=== PATIENT | female | born 1975 ===

== ENCOUNTER 2016-07-03 22:13 | Emergency (ER) | payer OTHER ==
[2016-07-03 23:24] LABS: BASO # 0.1 K/uL (0.0-0.2); BASO % 0.7 % (0.0-2.0); EOS # 0.1 K/uL (0.0-0.7); EOS % 1.8 % (0.0-4.0); HEMATOCRIT 35.3 % (34.0-47.0); LYMPH # 2.8 K/uL (1.0-4.3); LYMPH % 37.6 % (20.0-40.0); MEAN CORPUSCULAR HEMOGLOBIN 30.1 pg (27.0-31.0); MEAN CORPUSCULAR HGB CONC 34.2 g/dL (33.0-37.0); MEAN PLATELET VOLUME 8.9 fL (7.2-11.7); MONO # 0.5 K/uL (0.0-0.8); MONO % 6.9 % (0.0-10.0); RED CELL DISTRIBUTION WIDTH 13.5 % (11.5-14.5); WHITE BLOOD COUNT 7.4 K/uL (4.8-10.8)
[2016-07-03 23:32] LABS: CHLORIDE 103 mmol/L (98-107); SODIUM 140 mmol/L (132-148)
[2016-07-03 23:33] LABS: POTASSIUM 4.1 mmol/L (3.6-5.2)
[2016-07-03 23:35] LABS: ALB/GLOB RATIO 1.4 (1.0-2.1); ALKALINE PHOSPHATASE 43 U/L (38-126); ALT/SGPT 20 U/L (9-52); AST/SGOT 26 U/L (14-36); BILIRUBIN,TOTAL 0.2 mg/dL (0.2-1.3); BLOOD UREA NITROGEN 8 mg/dL (7-17); CARBON DIOXIDE 21 mmol/L (22-30); GFR AFRICAN-AMERICAN > 60; GLUCOSE,RANDOM 81 mg/dL (65-105); TOTAL PROTEIN 7.5 g/dL (6.3-8.3)
[2016-07-03 23:36] LABS: CALCIUM 9.2 mg/dl (8.6-10.4)
--- NOTE | 2016-07-03 23:43 | C.PDOC ---
History Of Present Illness 40 y/o female, , who is 10 weeks with care, ultrasound 1 week ago showing IUP with heart rate but small for dates, reports mild cramping pain and vaginal bleeding onset last night. Patient states symptoms continued intermittently today. Denies any other medical problems. Denies fever, chills, nausea, vomiting, or other associated symptoms. Time Seen by Provider: 07/03/16 22:47 Chief Complaint (Nursing): Female Genitourinary History Per: Patient History/Exam Limitations: no limitations Onset/Duration Of Symptoms: Days Current Symptoms Are (Timing): Better Severity: Mild Quality Of Discomfort: Cramping, "Pain" Associated Symptoms: denies: Fever, Nausea, Vomiting, Diarrhea, Urinary Symptoms Recent travel outside of the [place]: No Abnormal Vaginal Bleeding: Yes : 3 Para: 2 Past Medical History Reviewed: Historical Data, Nursing Documentation, Vital Signs Vital Signs: Last Vital Signs Temp 98 F 07/04/16 01:00 Pulse 89 07/04/16 01:00 Resp 20 07/04/16 01:00 BP 119/70 07/04/16 01:00 Pulse Ox 100 07/04/16 01:40 - Medical History PMH: No Chronic Diseases Surgical History: No Surg Hx Family History: States: Unknown Family Hx - Social History Hx Tobacco Use: No Hx Alcohol Use: No Hx Substance Use: No Review Of Systems Except As Marked, All Systems Reviewed And Found Negative. Constitutional: Negative for: Fever, Chills Respiratory: Negative for: Cough Gastrointestinal: Positive for: Abdominal Pain. Negative for: Nausea, Vomiting Genitourinary: Positive for: Vaginal Bleeding. Negative for: Dysuria Skin: Negative for: Rash Neurological: Negative for: Headache Physical Exam - Physical Exam Appears: Non-toxic, No Acute Distress Skin: Normal Color, Warm, Dry Chest: Symmetrical Cardiovascular: Rhythm Regular Respiratory: No Rales, No Rhonchi, No Wheezing Gastrointestinal/Abdominal: Soft, No Tenderness, No Guarding, No Rebound Neurological/Psych: Oriented x3, Normal Speech, Normal Cognition ED Course And Treatment - Laboratory Results Result Diagrams: 07/03/16 23:20 07/03/16 23:20 O2 Sat by Pulse Oximetry: 100 (RA) Pulse Ox Interpretation: Normal - CT Scan/US US Other Rad Studies (CT/US): Read By Radiologist, Radiology Report Reviewed CT/US Interpretation: IMPRESSION: Gestational sac with pole corresponding to 6 weeks 2 days, no heart tones detected. Differential diagnosis, early , versus demise. Consider serial hCG follow-up and repeat ultrasound in one or 2 weeks for more definitive. assessment. Progress Note: Labs, ultrasound ordered and reviewed. Patient advised to follow up with clinic in 2-4 days for further evaluation. Medical Decision Making Medical Decision Making: Results discussed with pt and SO: quant 20K, should see 10wk fetus with heart beat, US us small for dates and no FH Pt likely at the start of her miscarrage Plan clinic f/u return heavy bleeding or pain Disposition Counseled Patient/Family Regarding: Studies Performed, Diagnosis, Need For Followup - Disposition Disposition: HOME/ ROUTINE Disposition Time: 00:49 Condition: GOOD Additional Instructions: Follow up with your clinic in 2 - 4 days Return to the ED for any new or worsening symptoms or any heavy bleeding Instructions: Threatened Miscarriage (ED) - Clinical Impression Clinical Impression: Miscarriage - Scribe Statement The provider has reviewed the documentation as recorded by the Margaret Sapp Provider Scribe Attestation: All medical record entries made by the Rowdyibkirill were at my direction and personally dictated by me. I have reviewed the chart and agree that the record accurately reflects my personal performance of the history, physical exam, medical decision making, and the department course for this patient. I have also personally directed, reviewed, and agree with the discharge instructions and disposition.
[2016-07-04 01:06] VITALS: BP 119/70; PULSE 89; RESP 20; TEMP 98
[2016-07-04 01:40] VITALS: O2SAT 100
--- NOTE | 2016-07-04 08:53 | US ---
Pelvic ultrasound History: 10 weeks , bleeding. Comparison: None. Technique: Transabdominal and transvaginal ultrasonography evaluation of the pelvis obtained. Findings: The uterus is anteverted and measures approximately 8.8 x 5.7 x 7.2 centimeters. There is an irregular-appearing intrauterine gestational sac in the mid uterine segment. The mean sac diameter is approximately 2.18 centimeter which corresponds to gestational age of 6 weeks 5 days. There is a yolk sac. A pole is identified. The pole measures approximately 0.3 centimeter. This corresponds to gestational age of 5 weeks 6 days. No cardiac activity identified. In the lower uterine/upper cervical segment, there is heterogeneous density with multiple focus of low density. Small amount of fluid seen within the cervix. The cervix overall has a measurement approximately 3.2 centimeters. The right ovary measures 3.5 x 1.9 x 1.9 centimeters. Possible corpus luteum cyst measuring 2 x 1.2 x 1.4 centimeters seen within the right ovary. A punctate focus of calcification measuring approximately 2 millimeters noted in the right ovary. Doppler flow seen within the right ovary. The left ovary measures approximately 2.7 x 1.4 x 1.7 centimeter. Doppler flow seen within the left ovary. No significant amount of free fluid seen in the cul-de-sac. Impression: Irregular-appearing gestational sac seen in the mid uterine segment. pole measuring 0.3 centimeters noted. No cardiac activity identified. Heterogeneous and low-density focus seen within the lower uterine/upper cervical segment. Small amount fluid seen in the cervix which measures approximately 3.2 centimeters. These findings is suspicious for ongoing . However, very early cannot be entirely excluded. Close interval follow-up ultrasound should be obtained for confirmation of viability. Follow-up with beta HCG levels also recommended. Other findings as above. Please note that this report is in general agreement with the preliminary report provided by [facility].
== END 2016-07-04 01:01 | disposition home or self-care (01) ==
LOC: SUPCPDRO 22:13 → C.ER 22:13
DX: O03.9 Complete or unspecified spontaneous abortion without complication (principal)

== ENCOUNTER 2016-07-14 22:36 | Inpatient (IN) | payer OTHER ==
[2016-07-14 23:13] LABS: BASO # 0.1 K/uL (0.0-0.2); WHITE BLOOD COUNT 9.7 K/uL (4.8-10.8)
[2016-07-14 23:16] LABS: BASO % 0.5 % (0.0-2.0); EOS # 0.2 K/uL (0.0-0.7); EOS % 1.6 % (0.0-4.0); HEMATOCRIT 29.9 % (34.0-47.0); LYMPH % 31.2 % (20.0-40.0); MEAN CELL VOLUME 87.5 fL (81.0-99.0); MEAN CORPUSCULAR HEMOGLOBIN 31.2 pg (27.0-31.0); MEAN CORPUSCULAR HGB CONC 35.7 g/dL (33.0-37.0); MEAN PLATELET VOLUME 8.2 fL (7.2-11.7); MONO # 0.6 K/uL (0.0-0.8); MONO % 6.1 % (0.0-10.0); NRBC % 0.1 % (0.0-2.0); RED CELL DISTRIBUTION WIDTH 13.5 % (11.5-14.5)
[2016-07-14] MEDS ORDERED: Sodium Chloride 0.9% 1,000 ML IV ONE (23:23)
[2016-07-15] MEDS ORDERED: Sodium Chloride 0.9% 1,000 ML IV ONE (00:22)
--- NOTE | 2016-07-15 00:27 | C.PDOC ---
History Of Present Illness Patient is a 40 year old female who presents to the ER with a complaint vaginal bleeding and clots. Patient was seen on the and diagnosed with a threatened miscarriage and had a confirmed demise on the . [place] [address] [place] [address], vaginal spotting, and a closed cervix so she was discharged home. Patient states she now has suprapubic cramping and lightheadedness associated with heavy vaginal bleeding. Patient denies passing tissue, fever, or chills. Time Seen by Provider: 07/14/16 22:45 Chief Complaint (Nursing): Female Genitourinary History Per: Patient History/Exam Limitations: no limitations Onset/Duration Of Symptoms: Hrs Current Symptoms Are (Timing): Still Present Quality Of Discomfort: Other (No pain) Associated Symptoms: denies: Fever, Chills Alleviating Factors: None Recent travel outside of the [place]: No Abnormal Vaginal Bleeding: Yes Past Medical History Reviewed: Historical Data, Nursing Documentation, Vital Signs Vital Signs: Last Vital Signs Temp 97.3 F L 07/14/16 22:40 Pulse 80 07/14/16 22:40 Resp 13 07/14/16 22:40 BP 93/48 L 07/15/16 00:04 Pulse Ox 97 07/15/16 00:31 - Medical History PMH: No Chronic Diseases Surgical History: No Surg Hx Family History: States: Unknown Family Hx - Social History Hx Tobacco Use: No Hx Alcohol Use: No Hx Substance Use: No - Immunization History Hx Tetanus Toxoid Vaccination: No Hx Influenza Vaccination: No Hx Pneumococcal Vaccination: No Review Of Systems Constitutional: Negative for: Fever, Chills Gastrointestinal: Positive for: Other (Suprapubic cramping) Genitourinary: Positive for: Vaginal Bleeding, Other (Clots) Physical Exam - Physical Exam Appears: Non-toxic, Other (Low blood pressure) Skin: Warm, Dry, Pale Head: Atraumatic, Normacephalic Oral Mucosa: Moist Chest: Symmetrical, No Tenderness Cardiovascular: Rhythm Regular, No Murmur Respiratory: Normal Breath Sounds, No Rales, No Rhonchi, No Wheezing Gastrointestinal/Abdominal: Soft, Tenderness (suprapubic) Pelvic: Cervix Open (Clots in vaginal vault), Other (Tissue in os) Neurological/Psych: Oriented x3, Normal Speech, Normal Cognition ED Course And Treatment - Laboratory Results Result Diagrams: 07/14/16 23:05 Lab Interpretation: Abnormal Interpretation Of Abnormal: HGB decreased to 10.7 from 12.3 on the 18th. HCG now 4461. O2 Sat by Pulse Oximetry: 97 Pulse Ox Interpretation: Normal Reevaluation Time: 00:33 Reassessment Condition: Unchanged (Patient has a mildly decreased BP despite being given 1 liter of saline IV. An additional leter ordered.) - Physician Consult Information Time Consulting Physician Contacted: 00:33 Physician Contacted: China A Agustin Outcome Of Conversation: Patient to be admitted for spontaneous miscarriage with heavy vaginal bleeding. Medical Decision Making Medical Decision Making: Plan: * IV fluids * Transvaginal US Disposition - Disposition Disposition: HOSPITALIZED Disposition Time: 00:34 Condition: FAIR - POA Present On Arrival: None - Clinical Impression Clinical Impression: Miscarriage - Scribe Statement The provider has reviewed the documentation as recorded by the Scribe Reno Meza All medical record entries made by the Scribe were at my direction and personally dictated by me. I have reviewed the chart and agree that the record accurately reflects my personal performance of the history, physical exam, medical decision making, and the department course for this patient. I have also personally directed, reviewed, and agree with the discharge instructions and disposition.
[2016-07-15] MEDS ORDERED: metroNIDAZOLE IV 500 mg/100 ml 500 MG/100 ML BAG IVPB STA (01:25)
[2016-07-15] MEDS ORDERED: cefOXitin IV 2 gm in Dextrose 2 GM/50 ML BAG IVPB ONE (01:26)
--- NOTE | 2016-07-15 01:42 | CP.PCM.HP ---
History of Present Illness - History of Present Illness History of Present Illness: [place] [id number] Patient received in stretcher, bed #1; significant other present 40 yo , LMP 04/21/16,EGA 12 weeks, returns with heavier vaginal bleeding x 2 days and passage of clots 07/14/16; and lower abdominal pain, pain scale 8/ 10. Patient seen in E.D. 07/11/16 with c/o vaginal bleeding: os was closed; ultrasound findings c/w IUP at 5weeks 5 days with irregular sac, pole but no cardiac activity. Previous E.D. visit 07/04/16 at 6w - c/w missed . records reveals ultrasound 06/27/16 with 2 weeks discrepancy, AGA 7w 4d , by LMP should have been 9 weeks. Current pain scale 8/10. Patient denies loss of consciousness, dizziness, (+) headaches. Patient last 2000 hours - rice and beef. P Ob: x 2: 1996, 7 1/2 lb; 1999, 12 lb - both females; born in [facility]. No GDM; no complications P RESEARCH DEVELOPMENT DIRECTOR: 13 x monthly x 6. Denies STIs PMH: denies PSH: denies NKDA Meds: PNV - QD Soc Hx: denies tobacco, illicit drug or EtOH use. Lives with current significant /FOB and a female roommate; with FOB x 2 years. Fam Hx: Mother alive - breast cancer and GI issues. Father age 89 - possible DVT with massive embolus. No other fam h/o cancer Present on Admission - Present on Admission Any Indicators Present on Admission: No Review of Systems - Review of Systems Systems not reviewed;Unavailable: Acuity of Condition All systems: reviewed and no additional remarkable complaints except - Reproductive: Female Reproductive:Female: As Per HPI Past Patient History - Infectious Disease Hx of Infectious Diseases: None - Tetanus Immunizations Tetanus Immunization: Unknown - Past Social History Smoking Status: Never Smoked Alcohol: None Drugs: Denies Home Situation {Lives}: Friends - CARDIAC Hx Cardiac Disorders: No - PULMONARY Hx Respiratory Disorders: No - NEUROLOGICAL Hx Neurological Disorder: No - HEENT Hx HEENT Problems: No - RENAL Hx Chronic Kidney Disease: No - ENDOCRINE/METABOLIC Hx Endocrine Disorders: No - HEMATOLOGICAL/ONCOLOGICAL Hx Blood Disorders: No - INTEGUMENTARY Hx Dermatological Problems: No - MUSCULOSKELETAL/RHEUMATOLOGICAL Hx Musculoskeletal Disorders: No - GASTROINTESTINAL Hx Gastrointestinal Disorders: No - GENITOURINARY/GYNECOLOGICAL Hx Genitourinary Disorders: No LMP:: 04/21/2016 : 3 Para: 2 Termination of : 0 - PSYCHIATRIC Hx Psychophysiologic Disorder: No Hx Substance Use: No - SURGICAL HISTORY Hx Surgeries: No - ANESTHESIA Hx Anesthesia: No Meds Allergies/Adverse Reactions: Allergies Allergy/AdvReac Type Severity Reaction Status Date / Time No Known Allergies Allergy Verified 07/14/16 22:47 Physical Exam - Constitutional Appears: Well, No Acute Distress - Head Exam Head Exam: NORMAL INSPECTION - Eye Exam Eye Exam: Normal appearance - ENT Exam ENT Exam: Mucous Membranes Moist - Respiratory Exam Respiratory Exam: Clear to Auscultation Bilateral, NORMAL BREATHING PATTERN - Cardiovascular Exam Cardiovascular Exam: REGULAR RHYTHM - GI/Abdominal Exam GI & Abdominal Exam: Normal Bowel Sounds, Soft - Exam External exam: NORMAL EXTERNAL EXAM Additional comments: Cervical os 2cm dilated; tissue palpated at internal os. Anteverted uterus 10 weeks, soft, mobile, (+) uterine tenderness; no adnexal masses or tenderness - Extremities Exam Extremities exam: Positive for: full ROM, normal inspection - Back Exam Back exam: NORMAL INSPECTION - Neurological Exam Neurological exam: Alert, Normal Gait, Oriented x3 - Psychiatric Exam Psychiatric exam: Normal Affect, Normal Mood - Skin Skin Exam: Dry, Intact, Pallor, Warm Results - Vital Signs Recent Vital Signs: Last Vital Signs Temp 97.3 F L 07/14/16 22:40 Pulse 80 07/14/16 22:40 Resp 13 07/14/16 22:40 BP 93/48 L 07/15/16 00:04 Pulse Ox 97 07/15/16 00:34 - Labs Result Diagrams: 07/14/16 23:05 Assessment & Plan - Assessment and Plan (Free Text) Assessment: Laboratory results and ultrasound report reviewed by me personally: latter noted for no IUP; thickened endometrium, heterogeneous 1.8 cm; cystic structure within endometrium 0.6 x 0.6 cm - c/w retained products of conception 40 yo P2, 12 weeks, known missed , now with incomplete . Decreased H/H compared to prior evaluation 06/2616 noted. Patient is otherwise hemodynamically stable. Counseled for D&C; R/B/C all discussed including possible blood transfusion. Patient expressed an understanding; her questions were answered. Consents signed, dated, witnessed and placed in chart. Plan: Admit to RESEARCH DEVELOPMENT DIRECTOR NPO Flagyl 500 mg IVP x 1 Mefoxin 2 grams IVP x 1 IVFs T&S call worker to O.R. - Date & Time Date: 07/15/16 Time: 01:53
[2016-07-15] MEDS: Lactated Ringer's 1,000 ML IV SCH ×2 (01:52→07:16)
[2016-07-15] MEDS ORDERED: Propofol 10 mg/ml Inj (20 ML) ONE (02:18)
[2016-07-15] MEDS ORDERED: Midazolam 2 MG/2 ML VIAL ONE (02:18)
[2016-07-15] MEDS ORDERED: Lactated Ringer's 1,000 ML IV ONE ×2 (02:38→02:47)
[2016-07-15] MEDS ORDERED: ePHEDrine 50 mg/ml Inj ONE (03:03)
--- NOTE | 2016-07-15 03:03 | PCM.SURG1 ---
Surgeon's Initial Post Op Note - Surgeon's Notes Surgeon: China Velez MD Roofing Superintendent: Not applicable Type of Anesthesia: General Endo Anesthesia Administered By: Kushal Moura MD Pre-Operative Diagnosis: Incomplete , missed Operative Findings: Uterus sounded to 10 cm. Anteverted uterus 10 weeks, os 2 cm dilated; tissue at external os Post-Operative Diagnosis: Same Operation Performed: Suction/sharp D&C Specimen/Specimens Removed: Products of conception Estimated Blood Loss: EBL {In ML}: 50 Blood Products Given: N/A Drains Used: No Drains Post-Op Condition: Good Date of Surgery/Procedure: 07/15/16 Time of Surgery/Procedure: 03:03
[2016-07-15] MEDS ORDERED: HYDROmorphone 0.5 mg/0.5 ml ISec IVP PRN (03:19)
[2016-07-15 03:32] VITALS: O2SAT 98
[2016-07-15 07:31] LABS: BASO % 0.6 % (0.0-2.0); EOS # 0.1 K/uL (0.0-0.7); EOS % 1.2 % (0.0-4.0); HEMATOCRIT 25.2 % (34.0-47.0); LYMPH # 2.5 K/uL (1.0-4.3); LYMPH % 34.8 % (20.0-40.0); MEAN CELL VOLUME 88.1 fL (81.0-99.0); MEAN CORPUSCULAR HEMOGLOBIN 30.8 pg (27.0-31.0); MEAN PLATELET VOLUME 8.1 fL (7.2-11.7); MONO # 0.4 K/uL (0.0-0.8); MONO % 5.5 % (0.0-10.0); NRBC % 0.1 % (0.0-2.0); RED CELL DISTRIBUTION WIDTH 13.3 % (11.5-14.5); WHITE BLOOD COUNT 7.3 K/uL (4.8-10.8)
--- NOTE | 2016-07-15 08:36 | CP.PCM.DIS ---
Provider - Provider Date of Admission: 07/15/16 01:24 Attending physician: China Velez MD Time Spent in preparation of Discharge (in minutes): 30 Diagnosis - Discharge Diagnosis (1) Incomplete Status: Resolved Priority: Low Onset Date: ~07/15/16 Comment: Status post D&C (2) demise before 20 weeks with retention of fetus Status: Resolved Priority: Low Onset Date: ~06/27/16 Comment: Status post D&C (3) Acute blood loss anemia Status: Acute Priority: Medium Onset Date: ~07/15/16 Comment: Asymptomatic; hemodynamically stable. Hospital Course - Lab Results Lab Results: Most Recent Lab Values WBC 7.3 K/uL (4.8-10.8) 07/15/16 07:18 RBC 2.85 Mil/uL (3.80-5.20) L 07/15/16 07:18 Hgb 8.8 g/dL (11.0-16.0) L 07/15/16 07:18 Hct 25.2 % (34.0-47.0) L 07/15/16 07:18 MCV 88.1 fL (81.0-99.0) 07/15/16 07:18 MCH 30.8 pg (27.0-31.0) 07/15/16 07:18 MCHC 35.0 g/dL (33.0-37.0) 07/15/16 07:18 RDW 13.3 % (11.5-14.5) 07/15/16 07:18 Plt Count 180 K/uL (130-400) 07/15/16 07:18 MPV 8.1 fL (7.2-11.7) 07/15/16 07:18 Neut % (Auto) 57.9 % (50.0-75.0) 07/15/16 07:18 Lymph % (Auto) 34.8 % (20.0-40.0) 07/15/16 07:18 Christian % (Auto) 5.5 % (0.0-10.0) 07/15/16 07:18 Eos % (Auto) 1.2 % (0.0-4.0) 07/15/16 07:18 Baso % (Auto) 0.6 % (0.0-2.0) 07/15/16 07:18 Neut # 4.2 K/uL (1.8-7.0) 07/15/16 07:18 Lymph # 2.5 K/uL (1.0-4.3) 07/15/16 07:18 Christian # 0.4 K/uL (0.0-0.8) 07/15/16 07:18 Eos # 0.1 K/uL (0.0-0.7) 07/15/16 07:18 Baso # 0.0 K/uL (0.0-0.2) 07/15/16 07:18 PT 11.1 SECONDS (9.7-12.2) 07/15/16 01:14 INR 1.0 07/15/16 01:14 APTT 27 SECONDS (21-34) 07/15/16 01:14 Beta HCG, Quant 4461.30 mIU/ML 07/14/16 23:05 Blood Type O POSITIVE 07/15/16 01:05 Antibody Screen Negative 07/15/16 01:05 - Hospital Course Hospital Course: 40 yo P2012, admitted with history of vaginal bleeding x 8 to 10 days, increasing and accompanied with abdominal pain, pain scale 8/10 on DOA, with known demise from first ultrasound 06/27/16 - findings c/w missed . Cervical os open. Ultrasound on DOA revealed no IUP; heterogeneous endometrium with cystic structure. Patient's hemoglobin/hematocrit decreased from 11.6/34.3 to 10.7/ 29.9 prior to going to the O.R. Patient counseled for uterine evacuation. Patient underwent uneventful suction sharp uterine curettage. Post operative course: Patient received in bed, room 451, asleep and easily awakened. Denies nausea, vomiting; dizziness, lightheadedness, loss of consciousness. Ambulating and voiding without incident. - Date & Time of H&P Date of H&P: 07/15/16 Time of H&P: 01:28 Discharge Exam - Head Exam Head Exam: NORMAL INSPECTION - Eye Exam Eye Exam: Normal appearance - ENT Exam ENT Exam: Mucous Membranes Dry - Neck Exam Neck exam: Full Rom - Respiratory Exam Respiratory Exam: NORMAL BREATHING PATTERN - Cardiovascular Exam Cardiovascular Exam: REGULAR RHYTHM - GI/Abdominal Exam GI & Abdominal Exam: Normal Bowel Sounds, Soft (Non tender) - Extremities Exam Extremities exam: full ROM, normal inspection - Neurological Exam Neurological exam: Alert, Oriented x3 - Psychiatric Exam Psychiatric exam: Normal Affect, Normal Mood - Skin Skin Exam: Dry, Intact, Pallor, Warm Discharge Plan - Discharge Medications Prescriptions: Docusate Sodium/Ferrous Fumara [Rosalva-Sequels 100 mg -150 mg] 1 tab PO TID #90 tab Ibuprofen [Motrin] 600 mg PO Q4 PRN #24 tab PRN Reason: Pain, Moderate (4-7) Metronidazole [Flagyl] 500 mg PO BID #14 tab - Follow Up Plan Condition: FAIR Disposition: HOME/ ROUTINE Additional Instructions: Nothing per vagina x 2 weeks No heavy lifting x 1 week Keep clinic appointment, 07/25/16 Continue vitamins 1 tab by mouth once a day Rosalva-Sequels (100-150) 1 tab by mouth 3x a day x 3 weeks, then once a day Motrin 600 mg 1 tab by mouth every 4 hours, PRN Flagyl 500 mg 1 tab by mouth every 12 hours x 7 days
[2016-07-15 09:41] VITALS: BP 99/54; PULSE 73; RESP 18; TEMP 97.8
--- NOTE | 2016-07-15 10:07 | OP ---
PROCEDURE DATE: 07/15/2016 SURGEON: China Velez MD SWING GRINDER: Not applicable. ANESTHESIA: General with endotracheal intubation. ANESTHESIOLOGIST: Kushal Moura MD PREOPERATIVE DIAGNOSES: Incomplete , missed at 12 weeks. POSTOPERATIVE DIAGNOSES: Incomplete , missed at 12 weeks. OPERATIVE FINDINGS: Uterus sounded to 10 cm; anteverted, approximately 10 weeks in size. The external os was open to 2 cm dilated and tissue was noted at the os. PROCEDURE PERFORMED: Suction/sharp curettage. SPECIMENS: Products of conception. ESTIMATED BLOOD LOSS: 50 mL. BLOOD PRODUCTS GIVEN: None. COMPLICATIONS: None. PROCEDURE: The patient was taken to the operating room after having obtained informed consent for the anticipated procedure. This included a discussion of possible risks and complications including, but not limited to, infection requiring continued antibiotics, hemorrhage requiring blood transfusion, uterine perforation requiring possible laparoscopy, laparotomy, repair of any damage to internal organs and removal of any diseased tissue. The patient had expressed an understanding. Her questions were answered. Consents were signed , dated, witnessed and placed in the chart. The patient received Flagyl 500 mg en route to the operating room and received Mefoxin 2 grams intraoperatively. The patient was placed on the operating room table. Anesthesia was administered without incident. She was then repositioned into a dorsal lithotomy position [facility]. The patient's perineum was prepped and she was draped in the usual sterile fashion. Bimanual examination was performed; findings as above. Catheterization was performed and approximately 400 mL of clear urine was retrieved. A weighted speculum was placed in the posterior vaginal vault. Using the Flores retractor to visualize the cervix, the anterior lip of the cervix was then grasped using the ring forceps. The uterus was sounded with findings as above. A 9 cm suction tip was then inserted. The suction device was activated and the uterus was emptied of its contents. Sharp curettage was performed until a gritty texture was obtained. The uterus was noted to be contracted. All instruments were removed. Bimanual examination was performed and the uterus was approximately 8 weeks in size and firm; hemostasis was assured. The patient was repositioned into a supine position. She was extubated; allowed to arise from anesthesia and transferred to the recovery room in stable condition. China A Agustin ROJAS cc: [id number] TT: 07/15/2016 10:06:58 en MTDD
--- NOTE | 2016-07-15 11:40 | US ---
Indication: Vaginal bleeding Technique: Transvaginal pelvic ultrasound. Comparison: ultrasound performed 07/11/16 Findings: The uterus measures approximately 10.0 x 3.3 x 6.1. Anteverted. Endometrium measures approximately 1.8 cm. Cystic structure within the mid uterus measuring approximately 0.6 x 0.6 x 0.6 cm. The right ovary measures 3.5 x 1.9 x 2.5 cm and appears unremarkable. The left ovary measures 2.1 x 2.2 x 2.7 cm and appears unremarkable. Blood flow is noted to both ovaries. No significant pelvic free fluid identified. Impression: Heterogeneous thickened endometrium with increased vascularity ; correlate for retained products of conception. Uterine cystic structure within/near the endometrium measuring approximately 0.6 x 0.6 x 0.6 cm. Preliminary impression was provided by virtual radiologic. Findings were discussed between Dr. El and Dr. Dangelo on 07/15/16 at 1136am.
== END 2016-07-15 12:00 | disposition home or self-care (01) | DRG 381 ==
LOC: C.ER 22:36 → C.9E 07-15 00:35 → OBSVTOIN 07-15 01:24 → C.4M 07-15 01:24
PROVIDERS: ADMIT Obstetrics & Gynecology; ATTEND Obstetrics & Gynecology
PROC: 10D17ZZ Extraction of Products of Conception, Retained, Via Natural or Artificial Opening (ICD-10-PCS; principal; 2016-07-15 02:08)
DX: O03.4 Incomplete spontaneous abortion without complication (principal)

== ENCOUNTER 2016-08-23 16:37 | Emergency (ER) | payer OTHER ==
[2016-08-23 17:04] VITALS: TEMP 97.8; O2SAT 98
[2016-08-23] MEDS ORDERED: Sodium Chloride 0.9% 1,000 ML IV STA (17:40)
[2016-08-23 18:04] LABS: BASO # 0.1 K/uL (0.0-0.2); BASO % 0.8 % (0.0-2.0); EOS # 0.1 K/uL (0.0-0.7); EOS % 0.9 % (0.0-4.0); HEMATOCRIT 35.3 % (34.0-47.0); LYMPH # 2.2 K/uL (1.0-4.3); LYMPH % 33.8 % (20.0-40.0); MEAN CELL VOLUME 90.7 fL (81.0-99.0); MEAN CORPUSCULAR HEMOGLOBIN 30.6 pg (27.0-31.0); MEAN CORPUSCULAR HGB CONC 33.7 g/dL (33.0-37.0); MEAN PLATELET VOLUME 8.5 fL (7.2-11.7); MONO # 0.5 K/uL (0.0-0.8); MONO % 7.2 % (0.0-10.0); NRBC % 0.2 % (0.0-2.0); RED CELL DISTRIBUTION WIDTH 13.9 % (11.5-14.5); WHITE BLOOD COUNT 6.5 K/uL (4.8-10.8)
[2016-08-23 18:12] LABS: CHLORIDE 101 mmol/L (98-107); POTASSIUM 3.8 mmol/L (3.6-5.2); SODIUM 139 mmol/L (132-148)
[2016-08-23] MEDS ORDERED: Morphine 4 MG/ML VIAL ONE (18:13)
[2016-08-23] MEDS ORDERED: Sodium Chloride 0.9% 1,000 ML ONE (18:13)
[2016-08-23 18:14] LABS: BILIRUBIN,TOTAL 0.4 mg/dL (0.2-1.3); GFR AFRICAN-AMERICAN > 60; RBC URINE 1 /hpf (0-3); URINE BILIRUBIN NEGATIVE (NEGATIVE); URINE BLOOD NEGATIVE (NEGATIVE); URINE COLOR Colorless (YELLOW); URINE GLUCOSE (UA) NORMAL (Normal); URINE KETONE NEGATIVE (NEGATIVE); URINE LEUKOCYTE ESTERASE NEG Leu/uL (Negative); URINE PROTEIN NEGATIVE (NEGATIVE); URINE UROBILINOGEN NORMAL mg/dL (0.2-1.0); WBC URINE < 1 /hpf (0-5)
[2016-08-23 18:15] LABS: ALB/GLOB RATIO 1.4 (1.0-2.1); ALKALINE PHOSPHATASE 61 U/L (38-126); ALT/SGPT 22 U/L (9-52); AST/SGOT 23 U/L (14-36); BLOOD UREA NITROGEN 12 mg/dL (7-17); CALCIUM 9.2 mg/dl (8.6-10.4); CARBON DIOXIDE 24 mmol/L (22-30); GLUCOSE,RANDOM 88 mg/dL (65-105); TOTAL PROTEIN 7.6 g/dL (6.3-8.3)
--- NOTE | 2016-08-23 18:17 | C.PDOC ---
History Of Present Illness <Bailey Lombardi - Last Filed: 08/23/16 19:09> <Andrzej Marrufo - Last Filed: 08/23/16 21:16> 40 yr old female presents to the ER with complaints of lower abdomen pain for the past 1 month. Patient states she had an spontaneous 1 month ago and since then she keeps having pain in the lower abdomen with brownish discharge. Patient states the symptoms got worse in the last few days. Patient reports she is also on Cipro for UTI. Patient denies fever, chills, chest pain, SOB, nausea, vomiting, diarrhea, dysuria, weakness or numbness. (Bailey Lombardi) History Per: Patient History/Exam Limitations: no limitations Onset/Duration Of Symptoms: Persistent (1 month ) Location Of Pain/Discomfort: Suprapubic <Bailey Lombardi - Last Filed: 08/23/16 19:09> <Andrzej Marrufo - Last Filed: 08/23/16 21:16> Time Seen by Provider: 08/23/16 17:11 Chief Complaint (Nursing): Abdominal Pain Past Medical History Reviewed: Historical Data, Nursing Documentation, Vital Signs Family History: States: No Known Family Hx - Social History Hx Tobacco Use: No Hx Alcohol Use: No Hx Substance Use: No - Immunization History Hx Tetanus Toxoid Vaccination: No Hx Influenza Vaccination: No Hx Pneumococcal Vaccination: No <Bailey Lombardi - Last Filed: 08/23/16 19:09> Review Of Systems Except As Marked, All Systems Reviewed And Found Negative. Constitutional: Negative for: Fever, Chills Cardiovascular: Negative for: Chest Pain Respiratory: Negative for: Shortness of Breath Gastrointestinal: Positive for: Abdominal Pain (Lower abdomen ). Negative for: Nausea, Vomiting, Diarrhea Genitourinary: Negative for: Dysuria Neurological: Negative for: Weakness, Numbness <Bailey Lombardi - Last Filed: 08/23/16 19:09> Physical Exam - Physical Exam Appears: Well, Non-toxic, No Acute Distress Skin: Warm, Dry, No Rash Head: Atraumatic, Normacephalic Chest: Symmetrical, No Tenderness Cardiovascular: Rhythm Regular, No Murmur Respiratory: Normal Breath Sounds, No Rales, No Rhonchi, No Wheezing Gastrointestinal/Abdominal: Soft, Tenderness (Superpubic tenderness ), No Guarding, No Rebound Extremity: Normal ROM, No Swelling Neurological/Psych: Oriented x3, Normal Speech, Normal Motor <Bailey Lombardi - Last Filed: 08/23/16 19:09> ED Course And Treatment - Laboratory Results Result Diagrams: 08/23/16 17:58 08/23/16 17:58 O2 Sat by Pulse Oximetry: 98 <Bailey Lombardi - Last Filed: 08/23/16 19:09> - Laboratory Results Result Diagrams: 08/23/16 17:58 08/23/16 17:58 Pulse Ox Interpretation: Normal Reevaluation Time: 21:15 Reassessment Condition: Improved <Andrzej Marrufo - Last Filed: 08/23/16 21:16> Medical Decision Making <Bailey Lombardi - Last Filed: 08/23/16 19:09> <Andrzej Marrufo - Last Filed: 08/23/16 21:16> Medical Decision Making: PLAN: * US - Pelvis * CBC * CMP * BETA Quant * Urinalysis * Morphine IVP * Zofran IVP * Sodium Chloride IV (Bailey Lombardi) Disposition - Disposition Disposition Time: 19:10 <Bailey Lombardi - Last Filed: 08/23/16 19:09> Counseled Patient/Family Regarding: Studies Performed, Diagnosis, Need For Followup, Rx Given <Andrzej Marrufo - Last Filed: 08/23/16 21:16> - Disposition Referrals: [facility] [Outside] [facility] [Outside] Disposition: HOME/ ROUTINE Condition: FAIR Prescriptions: Naproxen [Naprosyn] 1 tab PO BID PRN #25 tab PRN Reason: Pain Instructions: Abdominal Pain (ED), Ovarian Cyst (ED) - Clinical Impression Clinical Impression: Pelvic pain, Abdominal pain, Ovarian cyst - PA / BONDERIZER / Resident Statement MD/DO has reviewed & agrees with the documentation as recorded. - Scribe Statement The provider has reviewed the documentation as recorded by the Scribe <Bailey Lombardi - Last Filed: 08/23/16 19:09> <Andrzej Marrufo - Last Filed: 08/23/16 21:16> - Scribe Statement Patti Nguyen All medical record entries made by the Scribe were at my direction and personally dictated by me. I have reviewed the chart and agree that the record accurately reflects my personal performance of the history, physical exam, medical decision making, and the department course for this patient. I have also personally directed, reviewed, and agree with the discharge instructions and disposition. (Bailey Lombardi) Physician Patient Turnover Patient Signed Over To: Andrzej Marrufo Handoff Comments: pelvic US pending, dispo <Bailey Lombardi - Last Filed: 08/23/16 19:09>
[2016-08-23 21:31] VITALS: BP 104/69; PULSE 75; RESP 18
--- NOTE | 2016-08-24 10:15 | US ---
HISTORY: pelvic pain, s/p spontan ab 1 mos ago COMPARISON: None available. TECHNIQUE: Transabdominal and transvaginal FINDINGS: UTERUS: Measures 9.3 x 4.4 x 4.1 cm. Normal in size and appearance. No fibroid or other mass lesion seen. ENDOMETRIUM: Measures 8 mm in diameter. No endometrial fluid or soft tissue. No evidence of retained products of conception. CERVIX: No cervical abnormality identified. RIGHT OVARY: Measures 4.6 x 2.4 x 4.2 cm. No solid mass. Normal flow. Right ovarian simple cyst, 2.6 x 2.0 x 2.1 cm. Right ovarian corpus luteum, 2.5 x 2.1 x 2.1 cm. LEFT OVARY: Measures 5.4 x 1.6 x 4.3 cm. No solid mass. Normal flow. Simple cyst, 3.7 x 1.3 x 2.9 cm FREE FLUID: No fluid in cul-de-sac. OTHER FINDINGS: None. IMPRESSION: Bilateral simple ovarian cysts. No evidence of retained products of conception.
== END 2016-08-23 21:31 | disposition home or self-care (01) ==
LOC: C.ER 16:37
DX: N83.11 Corpus luteum cyst of right ovary (principal); R10.2 Pelvic and perineal pain
CPT/HCPCS: 76830; 76856; 80053; 81001; 83690; 84702; 85025; 96361; 96374; 96375; 99284; J2270; J2405; J7040

== ENCOUNTER 2016-09-20 07:18 | Emergency (ER) | payer OTHER ==
[2016-09-20 07:22] VITALS: BP 98/66; PULSE 74; RESP 20; TEMP 97.6; O2SAT 100
[2016-09-20 07:55] LABS: HCG,QUALITATIVE URINE NEGATIVE (NEGATIVE)
--- NOTE | 2016-09-20 07:59 | C.PDOC ---
History Of Present Illness 40-year-old female, presents to the emergency department with complaints of pelvic pain since last night. Patient with B/L pelvic pain that started last night, which is associated with urinary frequency. no hematuria. Patient has a Hx of hematuria, No nausea/vomiting, or fevers. PELVIC PAIN SINCE LAST NIGHT. B/L +URINARY FREQ. NO HEMATURIA. HO OVARIAN CYST. NO NV FEVER EXAM MILD DIST NONTOXIC +SUPRAPUB TEND MILD SOFT NO R/G MDM HO PRIOR HYPOTENSION ON PRIOR VISITS SINCE 06/2016. NO GROSS SIGNS SEPSIS. Time Seen by Provider: 09/20/16 07:35 Chief Complaint (Nursing): Female Genitourinary History Per: Patient History/Exam Limitations: no limitations Onset/Duration Of Symptoms: Days Current Symptoms Are (Timing): Still Present Severity: Moderate Past Medical History Reviewed: Historical Data, Nursing Documentation, Vital Signs Vital Signs: Last Vital Signs Temp 97.6 F 09/20/16 07:21 Pulse 74 09/20/16 07:21 Resp 20 09/20/16 07:21 BP 98/66 L 09/20/16 07:21 Pulse Ox 100 09/20/16 08:47 - Medical History PMH: Denies: Chronic Kidney Disease - [facility] Procedures EXTRACTION OF PRODUCTS OF CONCEPTION, RETAINED, VIA OPENING (07/15/16) Family History: States: No Known Family Hx - Social History Hx Tobacco Use: No Hx Alcohol Use: No Hx Substance Use: No - Immunization History Hx Tetanus Toxoid Vaccination: No Hx Influenza Vaccination: No Hx Pneumococcal Vaccination: No Review Of Systems Except As Marked, All Systems Reviewed And Found Negative. Constitutional: Negative for: Fever, Chills Cardiovascular: Negative for: Chest Pain Respiratory: Negative for: Shortness of Breath Genitourinary: Positive for: Dysuria, Pelvic Pain. Negative for: Vaginal Discharge, Vaginal Bleeding Musculoskeletal: Negative for: Back Pain Physical Exam - Physical Exam Appears: Non-toxic, No Acute Distress Skin: Warm, Dry, No Rash Head: Atraumatic, Normacephalic Eye(s): bilateral: Normal Inspection Nose: Normal Oral Mucosa: Moist Lips: Normal Appearing Neck: Normal ROM Cardiovascular: Rhythm Regular, No Murmur Respiratory: Normal Breath Sounds, No Accessory Muscle Use Gastrointestinal/Abdominal: Soft, Tenderness (Mild, suprapubic), No Guarding, No Rebound Extremity: Normal ROM Neurological/Psych: Oriented x3, Normal Speech ED Course And Treatment O2 Sat by Pulse Oximetry: 100 Progress - Data Reviewed Data Reviewed: Lab, Old records Medical Decision Making Medical Decision Making: HO PRIOR HYPOTENSION ON PRIOR VISITS SINCE 06/2016. NO GROSS SIGNS SEPSIS. Disposition Counseled Patient/Family Regarding: Studies Performed, Diagnosis, Need For Followup, Rx Given - Disposition Referrals: [facility] [Outside] [facility] [employer] [Outside] [facility] [Other] Disposition: HOME/ ROUTINE Disposition Time: 08:18 Condition: IMPROVED Prescriptions: Ibuprofen [Motrin] 600 mg PO Q6 #30 tab Nitrofurantoin Macrocrystals [Macrobid] 1 cap PO BID #14 cap Phenazopyridine HCl [Pyridium] 200 mg PO BID #6 tablet Instructions: Urinary Tract Infection in Women (ED) Forms: Work/School/Gym Excuse Print Language: CHADIAN - Clinical Impression Clinical Impression: UTI (urinary tract infection) - Scribe Statement The provider has reviewed the documentation as recorded by the Scribe (Yaakov Brenner) All medical record entries made by the Scribe were at my direction and personally dictated by me. I have reviewed the chart and agree that the record accurately reflects my personal performance of the history, physical exam, medical decision making, and the department course for this patient. I have also personally directed, reviewed, and agree with the discharge instructions and disposition.
[2016-09-20 08:12] LABS: SQUAMOUS EPITHIAL 4 /hpf (0-5); URINE BACTERIA OCC (<OCC); URINE BILIRUBIN NEGATIVE (NEGATIVE); URINE BLOOD 3+ (NEGATIVE); URINE CLARITY Hazy (Clear); URINE COLOR Yellow (YELLOW); URINE GLUCOSE (UA) NORMAL (Normal); URINE LEUKOCYTE ESTERASE 3+ Leu/uL (Negative); URINE NITRATE NEGATIVE (NEGATIVE); URINE PROTEIN 1+ mg/dL (NEGATIVE); URINE UROBILINOGEN NORMAL mg/dL (0.2-1.0)
== END 2016-09-20 08:29 | disposition home or self-care (01) ==
LOC: C.ER 07:18
DX: N39.0 Urinary tract infection, site not specified (principal)

== ENCOUNTER 2017-04-10 09:39 | Emergency (ER) | payer OTHER ==
[2017-04-10 09:40] VITALS: BMI 23.1
[2017-04-10 11:34] VITALS: RESP 18; TEMP 98.5
--- NOTE | 2017-04-10 11:34 | C.PDOC ---
History Of Present Illness 41 y/o female presents to ED with complaints of subjective fever, back pain and abdominal pain for 2 days with associated dysuria and urinary frequency. Patient denies nausea, vomiting, diarrhea or any other complaints at this time. Time Seen by Provider: 04/10/17 11:19 Chief Complaint (Nursing): Abdominal Pain History Per: Patient History/Exam Limitations: no limitations Onset/Duration Of Symptoms: Days Current Symptoms Are (Timing): Still Present Location Of Pain/Discomfort: Suprapubic Past Medical History Reviewed: Historical Data, Nursing Documentation, Vital Signs Vital Signs: Last Vital Signs Temp 98.5 F 04/10/17 11:33 Pulse 59 L 04/10/17 11:33 Resp 18 04/10/17 11:33 BP 103/63 04/10/17 11:33 Pulse Ox 99 04/10/17 11:40 - Medical History PMH: No Chronic Diseases Surgical History: No Surg Hx - [facility] Procedures EXTRACTION OF PRODUCTS OF CONCEPTION, RETAINED, VIA OPENING (07/15/16) Family History: States: No Known Family Hx - Social History Hx Tobacco Use: No Hx Alcohol Use: No Hx Substance Use: No - Immunization History Hx Tetanus Toxoid Vaccination: No Hx Influenza Vaccination: No Hx Pneumococcal Vaccination: No Review Of Systems Constitutional: Positive for: Fever. Negative for: Chills Gastrointestinal: Positive for: Abdominal Pain. Negative for: Nausea, Vomiting Genitourinary: Positive for: Dysuria, Frequency Musculoskeletal: Positive for: Back Pain Physical Exam - Physical Exam Appears: Non-toxic, Other (Uncomfortable) Skin: Warm, Dry, No Rash Head: Atraumatic, Normacephalic Oral Mucosa: Moist Neck: Normal ROM, Supple Cardiovascular: Rhythm Regular Respiratory: Normal Breath Sounds, No Rales, No Rhonchi, No Wheezing Gastrointestinal/Abdominal: Soft, Tenderness (Suprapubic), No Guarding, No Rebound Back: No CVA Tenderness, No Decreased ROM Extremity: Normal ROM, Capillary Refill (<2 seconds) Neurological/Psych: Oriented x3 ED Course And Treatment - Laboratory Results Result Diagrams: 04/10/17 12:16 04/10/17 12:16 O2 Sat by Pulse Oximetry: 99 (RA) Pulse Ox Interpretation: Normal Reevaluation Time: 17:27 Reassessment Condition: Improved (ER ROSARIO NEG NO ACUTE FINDINGS.) Disposition Counseled Patient/Family Regarding: Studies Performed, Diagnosis, Need For Followup - Disposition Referrals: [facility] [Outside] [facility] [Outside] Disposition: HOME/ ROUTINE Disposition Time: 17:27 Condition: IMPROVED Additional Instructions: BENITES LUBNA, ORINA, EXAMEN CT Y ULTRASONIDOS SON TODOS NORMALES. NO HAY INFECCIN TOME MOTRIN / TYLENOL SEGN LO INDIQUE PARA EL DOLOR SEGN SEA NECESARIO. SEGUIMIENTO EN LA CLNICA O BENITES PMD. Instructions: Acute Abdominal Pain (ED) Forms: [employer] (Czech) Print Language: SOMALI - Clinical Impression Clinical Impression: Abdominal pain - Scribe Statement The provider has reviewed the documentation as recorded by the Scribkirill Beauchamp All medical record entries made by the Scribe were at my direction and personally dictated by me. I have reviewed the chart and agree that the record accurately reflects my personal performance of the history, physical exam, medical decision making, and the department course for this patient. I have also personally directed, reviewed, and agree with the discharge instructions and disposition.
[2017-04-10 11:51] LABS: SQUAMOUS EPITHIAL < 1 /hpf (0-5); URINE BILIRUBIN NEGATIVE (NEGATIVE); URINE BLOOD NEGATIVE (NEGATIVE); URINE CLARITY Clear (Clear); URINE COLOR Colorless (YELLOW); URINE GLUCOSE (UA) NORMAL (Normal); URINE LEUKOCYTE ESTERASE NEG Leu/uL (Negative); URINE NITRATE NEGATIVE (NEGATIVE); URINE PROTEIN NEGATIVE (NEGATIVE); URINE UROBILINOGEN NORMAL mg/dL (0.2-1.0)
[2017-04-10] MEDS ORDERED: Sodium Chloride 0.9% 1,000 ML IV ONE (12:00)
[2017-04-10] MEDS ORDERED: Iohexol 240 (50 ml) PO STA (12:00)
[2017-04-10 12:19] LABS: BASO % 0.8 % (0.0-2.0); EOS % 0.9 % (0.0-4.0); HEMOGLOBIN 12.2 g/dL (11.0-16.0); LYMPH # 1.8 K/uL (1.0-4.3); MEAN CELL VOLUME 89.5 fL (81.0-99.0); MEAN CORPUSCULAR HEMOGLOBIN 30.4 pg (27.0-31.0); MEAN PLATELET VOLUME 8.3 fL (7.2-11.7); MONO # 0.3 K/uL (0.0-0.8); MONO % 6.2 % (0.0-10.0); NEUT # 2.6 K/uL (1.8-7.0); NEUT % 54.1 % (50.0-75.0); RED CELL DISTRIBUTION WIDTH 13.5 % (11.5-14.5); WHITE BLOOD COUNT 4.7 K/uL (4.8-10.8)
[2017-04-10] MEDS ORDERED: Sodium Chloride 0.9% 1,000 ML ONE (12:27)
[2017-04-10] MEDS ORDERED: Morphine 4 MG/ML VIAL ONE (12:28)
[2017-04-10] MEDS ORDERED: Iohexol 240 (50 ml) ONE (12:28)
[2017-04-10 12:30] LABS: BLOOD UREA NITROGEN 8 mg/dL (7-17); CALCIUM 8.8 mg/dl (8.6-10.4); GFR AFRICAN-AMERICAN > 60; GFR NON-AFRICAN AMERICAN > 60
[2017-04-10] MEDS ORDERED: Iodixanol 320 MG/ML 100 ML BOTTLE IV ONE (16:01)
--- NOTE | 2017-04-10 16:23 | US ---
HISTORY: PELVIC PAIN COMPARISON: None available. TECHNIQUE: Real-time transabdominal pelvic ultrasound was performed. In addition a transvaginal pelvic ultrasound was necessary to better depict pelvic anatomy. FINDINGS: UTERUS: Measures 10.2 x 4.1 x 5.0 cm. Anteverted. 0.5 x 0.6 x 0.5 cm and 0.7 x 0.5 x 0.6 cm myometrial cysts. ENDOMETRIUM: Measures 8 mm in diameter. CERVIX: No cervical abnormality identified. RIGHT OVARY: Measures 2.9 x 1.9 x 2.2 cm. Blood flow is demonstrated. 4 mm echogenic focus, possibly calcification or focus of fat. LEFT OVARY: Measures 3.2 x 2.3 x 2.8 cm. Blood flow is demonstrated. FREE FLUID: No significant free fluid noted. OTHER FINDINGS: None. IMPRESSION: 0.5 x 0.6 x 0.5 cm and 0.7 x 0.5 x 0.6 cm myometrial cysts. 4 mm echogenic right ovarian focus, possibly calcification or focus of fat.
--- NOTE | 2017-04-10 16:55 | CT ---
PROCEDURE: CT Abdomen and Pelvis with oral and IV contrast. HISTORY: LOWER ABD PAIN COMPARISON: Abdominal ultrasound performed 12/24/16, pelvic ultrasound performed 04/10/17 TECHNIQUE: Contiguous axial images of the abdomen and pelvis. Oral and IV contrast was administered. Coronal and Sagittal reformats generated and reviewed. Contrast dose: 239.47 Radiation dose: Total exam DLP = 239.47 mGy-cm. This CT exam was performed using one or more of the following dose reduction techniques: Automated exposure control, adjustment of the mA and/or kV according to patient size, and/or use of iterative reconstruction technique. FINDINGS: LOWER THORAX: No visible consolidation, pleural effusion, or pneumothorax. LIVER: Unremarkable. GALLBLADDER AND BILE DUCTS: Unremarkable. PANCREAS: Unremarkable. SPLEEN: Unremarkable. ADRENALS: Unremarkable. KIDNEYS AND URETERS: The kidneys enhance symmetrically. No hydronephrosis or obstructing renal calculus. BLADDER: The urinary bladder appears unremarkable. REPRODUCTIVE: Uterus is present. APPENDIX: The appendix appears within normal limits of caliber. No secondary signs of acute appendicitis. BOWEL: The stomach is nondistended. The bowel loops appear within normal limits of caliber without evidence of intestinal obstruction. PERITONEUM: No significant free fluid. No definite free air. LYMPH NODES: No bulky lymphadenopathy identified. VASCULATURE: No aortic aneurysm. BONES: Vacuum disc phenomenon at L5-S1. OTHER FINDINGS: None. IMPRESSION: No acute findings identified. See above.
[2017-04-10 17:44] VITALS: BP 114/73; PULSE 65; O2SAT 100
== END 2017-04-10 17:44 | disposition home or self-care (01) ==
LOC: C.ER 09:39
DX: R10.30 Lower abdominal pain, unspecified (principal)
CPT/HCPCS: 74177; 76830; 76856; 80048; 81001; 85025; 96361; 96374; 96375; 99285; J2270; J2405; J7040; Q9966; Q9967

== ENCOUNTER 2017-12-27 16:10 | Emergency (ER) | payer SELFPAY ==
[2017-12-27 16:10] VITALS: BMI 23.0
[2017-12-27 16:31] VITALS: TEMP 97.9; O2SAT 98
--- NOTE | 2017-12-27 17:28 | C.PDOC ---
History Of Present Illness 42-year-old female, presents to the emergency department with complaints of diffuse lower abdominal cramping pain since this morning. Patient states she took a test at home and it was positive. LNMP 11/22/17. Pt denies fever, chills, nausea/vomiting, UTI, vaginal bleeding, vaginal irritation or discharge, back pain, or any other associated symptoms. Denies previous hx of ectopic . Ambulate to Ed for evaluation, not in any apparent distress. Time Seen by Provider: 12/27/17 17:26 Chief Complaint (Nursing): Abdominal Pain History Per: Patient History/Exam Limitations: no limitations Past Medical History Reviewed: Historical Data, Nursing Documentation, Vital Signs Vital Signs: Last Vital Signs Temp 97.9 F 12/27/17 16:26 Pulse 94 H 12/27/17 16:26 Resp 16 12/27/17 16:26 BP 114/72 12/27/17 16:26 Pulse Ox 98 12/27/17 16:26 - Medical History PMH: Denies: Chronic Kidney Disease - [facility] Procedures EXTRACTION OF PRODUCTS OF CONCEPTION, RETAINED, VIA OPENING (07/15/16) Family History: States: No Known Family Hx - Social History Hx Tobacco Use: No Hx Alcohol Use: No Hx Substance Use: No - Immunization History Hx Tetanus Toxoid Vaccination: No Hx Influenza Vaccination: No Hx Pneumococcal Vaccination: No Review Of Systems Constitutional: Negative for: Fever Cardiovascular: Negative for: Chest Pain, Palpitations Respiratory: Negative for: Shortness of Breath Gastrointestinal: Positive for: Abdominal Pain. Negative for: Nausea, Vomiting Genitourinary: Negative for: Vaginal Discharge, Vaginal Bleeding Musculoskeletal: Negative for: Back Pain Skin: Negative for: Rash Physical Exam - Physical Exam Appears: Non-toxic, No Acute Distress Skin: Warm, Dry, No Rash Head: Normacephalic Eye(s): bilateral: PERRL Nose: No Flaring Oral Mucosa: Moist, No Drooling Lips: Normal Appearing Throat: No Erythema, No Drooling Neck: Trachea Midline, Supple Chest: Symmetrical Cardiovascular: Rhythm Regular, No Murmur, No JVD Respiratory: No Decreased Breath Sounds, No Accessory Muscle Use, No Stridor, No Wheezing Gastrointestinal/Abdominal: Soft, Tenderness (mild suprapubic), No Distention, No Guarding, No Rebound Back: No CVA Tenderness Extremity: Normal ROM, No Deformity Neurological/Psych: Oriented x3, Normal Speech ED Course And Treatment - Laboratory Results Result Diagrams: 12/27/17 18:10 Lab Interpretation: Normal O2 Sat by Pulse Oximetry: 98 Pulse Ox Interpretation: Normal (RA) - CT Scan/US Transvaginal US Other Rad Studies (CT/US): Read By Radiologist CT/US Interpretation: (+) Gestational sac, early . No acute abnoramlities Progress Note: On re-eavl, pt is afebrile, hemodynamicaly stable. NOn-toxic. Tolerate Po well in ED. ENT: no acute findings. neck: SUpple, (-) JVD. Lungs: CTA B/L, BS equal B/L. Abd: benign, (-) guarding, (-) rebound. back: (-) CVA tenderness. Blood work review and appears normal. Transvaginal US c/w early , beta quant c/w 4-5 wks . Blood type A positive. Pt advised on course of ds. ref. to F/U with OB in 2-3 dyas for re-eval. return to Ed at any time if any worsening, vaginal bleeding or any other new changes. Pt is stable for discharge. Disposition Counseled Patient/Family Regarding: Studies Performed, Diagnosis, Need For Followup, Rx Given - [facility]position [facility]] Disposition: HOME/ ROUTINE Disposition Time: 20:33 Condition: STABLE Additional Instructions: Encourage fluids "Pelvic rest", avoid heavy lifting, any physical activity, sexual activity for 1 week Take multivitamins daily Follow up with OB in 2-3 days for re-evaluation. return to ED at any time if any worsening of abdominal pain, vaginal bleeding or any other new changes. Alentar los fluidos "Monse plvico", evite levantar objetos pesados, cualquier actividad fsica, actividad sexual delfina 1 semana Samuel embarazos multivitamnicos diarios. Seguimiento con OB en 2-3 morton para la reevaluacin. Regrese a la disfuncin erctil en cualquier momento si hay algn empeoramiento del dolor abdominal, sangrado vaginal o cualquier otro cambio nuevmelanie. Prescriptions: 21/Iron Fu/Folic Acid [ Complete Caplet] 1 each PO DAILY #30 tablet Instructions: Symptoms, - The First Month Forms: [employer] ([place]an) Print Language: LATVIAN - Clinical Impression Clinical Impression: , Abdominal pain in - Scribe Statement The provider has reviewed the documentation as recorded by the Scribe (Yaakov Brenner) All medical record entries made by the Scribe were at my direction and personally dictated by me. I have reviewed the chart and agree that the record accurately reflects my personal performance of the history, physical exam, medical decision making, and the department course for this patient. I have also personally directed, reviewed, and agree with the discharge instructions and dis position.
[2017-12-27 18:02] LABS: SQUAMOUS EPITHIAL 3 /hpf (0-5); URINE AMORPHOUS SEDIMENT RARE /ul (<OCC); URINE BACTERIA RARE (<OCC); URINE BILIRUBIN NEGATIVE (NEGATIVE); URINE BLOOD NEGATIVE (NEGATIVE); URINE CLARITY Hazy (Clear); URINE COLOR Yellow (YELLOW); URINE GLUCOSE (UA) NORMAL (Normal); URINE LEUKOCYTE ESTERASE TRACE Leu/uL (Negative); URINE PROTEIN NEGATIVE (NEGATIVE); URINE UROBILINOGEN NORMAL mg/dL (0.2-1.0)
[2017-12-27 18:15] LABS: BASO % 0.5 % (0.0-2.0); EOS # 0.1 K/uL (0.0-0.7); EOS % 0.7 % (0.0-4.0); LYMPH # 2.5 K/uL (1.0-4.3); LYMPH % 29.6 % (20.0-40.0); MEAN CELL VOLUME 88.4 fL (81.0-99.0); MEAN CORPUSCULAR HEMOGLOBIN 31.2 pg (27.0-31.0); MEAN CORPUSCULAR HGB CONC 35.3 g/dL (33.0-37.0); MEAN PLATELET VOLUME 8.4 fL (7.2-11.7); MONO # 0.6 K/uL (0.0-0.8); MONO % 6.8 % (0.0-10.0); NEUT # 5.3 K/uL (1.8-7.0); NEUT % 62.4 % (50.0-75.0); NRBC % 0.1 % (0.0-2.0); RBC 4.15 Mil/uL (3.80-5.20); RED CELL DISTRIBUTION WIDTH 13.3 % (11.5-14.5); WHITE BLOOD COUNT 8.5 K/uL (4.8-10.8)
[2017-12-27 20:46] VITALS: BP 112/70; PULSE 74; RESP 18
--- NOTE | 2017-12-28 11:18 | US ---
Indication: Abdominal pain Comparison: Transvaginal pelvic ultrasound performed 04/15/17 Technique: Real-time transabdominal pelvic ultrasound was performed. In addition a transvaginal pelvic ultrasound was necessary to better depict pelvic anatomy. Findings: Uterus measures approximately 9.4 x 4.9 x 5.6 cm. Anteverted. Cervix length measures approximately 3 cm. Endometrial thickness approximately 2.2 cm. Intrauterine gestational sac measures approximately 0.4 cm, too small for gestational age calculation. No evidence of yolk sac or pole at this time. Probable small anterior uterine body fibroid. The right ovary measures 3.6 x 2.4 x 3.8 cm. Complex right ovarian cyst measuring approximately 2.0 cm and 1.6 cm. The left ovary measures 2.6 x 1.5 x 2.4 cm. Blood flow was demonstrated to both ovaries. Impression: Evidence of intrauterine gestational sac, too small for gestational age calculation. No evidence of yolk sac or pole at this time. This is suspected due to early stage of gestation. Correlate clinically and follow-up as indicated including quantitative beta hCGs. Two complex right ovarian cystic lesions, likely corpus luteal or hemorrhagic cysts. Probable small anterior uterine body fibroid re-identified. Preliminary impression was provided by [employer].
== END 2017-12-27 20:59 | disposition home or self-care (01) ==
LOC: C.ER 16:10
DX: O26.891 Other specified pregnancy related conditions, first trimester (principal); Z3A.00 Weeks of gestation of pregnancy not specified; R10.9 Unspecified abdominal pain

== ENCOUNTER 2018-02-13 09:35 | Emergency (ER) | payer SELFPAY ==
[2018-02-13 09:35] VITALS: BMI 23.0
[2018-02-13] MEDS ORDERED: Sodium Chloride 0.9% 1,000 ML IV ONE (10:00)
[2018-02-13] MEDS ORDERED: Sodium Chloride 0.9% 1,000 ML ONE (10:41)
[2018-02-13 10:58] LABS: BASO % 0.7 % (0.0-2.0); EOS # 0.1 K/uL (0.0-0.7); EOS % 1.1 % (0.0-4.0); LYMPH # 1.9 K/uL (1.0-4.3); LYMPH % 28.1 % (20.0-40.0); MEAN CELL VOLUME 89.1 fL (81.0-99.0); MEAN CORPUSCULAR HEMOGLOBIN 31.2 pg (27.0-31.0); MEAN PLATELET VOLUME 8.6 fL (7.2-11.7); MONO # 0.5 K/uL (0.0-0.8); MONO % 6.7 % (0.0-10.0); NEUT # 4.4 K/uL (1.8-7.0); NEUT % 63.4 % (50.0-75.0); RBC 3.49 Mil/uL (3.80-5.20); RED CELL DISTRIBUTION WIDTH 13.7 % (11.5-14.5); WHITE BLOOD COUNT 6.9 K/uL (4.8-10.8)
[2018-02-13 11:04] LABS: HEMOGLOBIN 10.9 g/dL (11.0-16.0)
[2018-02-13 11:14] LABS: ALB/GLOB RATIO 1.4 (1.0-2.1); ALT/SGPT 19 U/L (9-52); AST/SGOT 19 U/L (14-36); BLOOD UREA NITROGEN 11 mg/dL (7-17); GFR NON-AFRICAN AMERICAN > 60
--- NOTE | 2018-02-13 11:17 | C.PDOC ---
History Of Present Illness 42 y/o female (1 ectopic) presents to ED with c/o pelvic pain associated with intermittent vaginal bleeding since 02/06/18, worsening since last night. Patient was seen at [facility] on 02/03/18, US that delfina wed abnormal multiloculated Yolk sac; patient was instructed to follow up with MFM but has not done so. Patient denies back pain, dysuria, fever, chills, nausea/vomiting or any other complaints at this time. Time Seen by Provider: 02/13/18 09:58 Chief Complaint (Nursing): Abdominal Pain History Per: Patient History/Exam Limitations: no limitations Onset/Duration Of Symptoms: Days Current Symptoms Are (Timing): Still Present Location Of Pain/Discomfort: Suprapubic Past Medical History Reviewed: Historical Data, Nursing Documentation, Vital Signs Vital Signs: Last Vital Signs Temp 97.6 F 02/13/18 09:50 Pulse 73 02/13/18 10:44 Resp 20 02/13/18 10:44 BP 96/61 L 02/13/18 10:44 Pulse Ox 100 02/13/18 10:44 - Medical History PMH: No Chronic Diseases Surgical History: No Surg Hx - [facility] Procedures EXTRACTION OF PRODUCTS OF CONCEPTION, RETAINED, VIA OPENING (07/15/16) Family History: States: No Known Family Hx - Social History Hx Tobacco Use: No Hx Alcohol Use: No Hx Substance Use: No - Immunization History Hx Tetanus Toxoid Vaccination: No Hx Influenza Vaccination: No Hx Pneumococcal Vaccination: No Review Of Systems Constitutional: Negative for: Fever, Chills Cardiovascular: Negative for: Chest Pain, Palpitations Respiratory: Negative for: Shortness of Breath Gastrointestinal: Positive for: Abdominal Pain. Negative for: Nausea, Vomiting, Diarrhea Genitourinary: Positive for: Vaginal Bleeding. Negative for: Dysuria Musculoskeletal: Negative for: Back Pain Physical Exam - Physical Exam Appears: Well, Non-toxic, Other (In moderate pain ) Skin: Warm, Dry, No Rash Eye(s): bilateral: Normal Inspection Oral Mucosa: Moist Neck: Supple Cardiovascular: Rhythm Regular Respiratory: Normal Breath Sounds, No Rales, No Rhonchi, No Wheezing Gastrointestinal/Abdominal: Bowel Sounds, Soft, Tenderness (Suprapubic TTP), No Guarding, No Rebound Back: Normal Inspection, No CVA Tenderness Neurological/Psych: Oriented x3 ED Course And Treatment - Laboratory Results Result Diagrams: 02/13/18 10:36 02/13/18 10:36 O2 Sat by Pulse Oximetry: 100 (RA) Pulse Ox Interpretation: Normal - CT Scan/US Abdomen US Other Rad Studies (CT/US): Read By Radiologist, Radiology Report Reviewed CT/US Interpretation: Impression: Intrauterine gestational sac contains evidence of multiloculated yolk sac with visualized loculations measuring approximately 1.6 cm, 1.3 cm, and 0.6 cm. No evidence of pole. Correlate clinically for possibility of anembryonic / failure. Recommend BENEFIT DIRECTOR consultation and continued close interval follow-up. Two complex right ovarian cysts. Findings discussed with Dr. Whitt on 02/13/18 at 1:11 p.m. Progress Note: Blood work, UA, transvaginal US ordered and reviewed. Patient given IV NS bolus, IV Morphine. - Physician Consult Information Physician Contacted: [place] A Agustin Outcome Of Conversation: Discussed patient with senior datastage developer manager zone, this is likely nonviable . No intervention needed at this time, patient will need to follow up with MFM as outpatient. Disposition Counseled Patient/Family Regarding: Studies Performed, Diagnosis, Need For Followup, Rx Given - Disposition Referrals: Maurizio Funez MD [Medical Doctor] - [facility] at [facility] [Outside] [facility] [employer] [Outside] Disposition: HOME/ ROUTINE Disposition Time: 14:45 Condition: STABLE Additional Instructions: FOLLOW UP WITH OB/GYM MATERNAL MEDICINE SPECIALIST RETURN TO EMERGENCY ROOM IF SYMPTOMS WORSEN SEGUIR CON EL ESPECIALISTA DE MEDICINA MATER[place] OB / SUPERVISOR PARTICLEBOARD VUELVA A LA MAGUI DE EMERGENCIA SI LOS SNTOMAS SE VILLEGAS PROBLEMAS Prescriptions: Ferrous Gluconate 324 mg PO DAILY #30 tablet oxyCODONE/Acetaminophen [Percocet 5/325 mg Tab] 1 tab PO QID PRN #15 tab PRN Reason: Pain Instructions: Miscarriage (DC) Forms: [facility] (Kinyarwanda) Print Language: SOL[place] ISLANDER - Clinical Impression Clinical Impression: Threatened miscarriage, Anemia - Scribe Statement The provider has reviewed the documentation as recorded by the Rowdyibkirill Beauchamp All medical record entries made by the Scribe were at my direction and perso agueda dictated by me. I have reviewed the chart and agree that the record accurately reflects my personal performance of the history, physical exam, medical decision making, and the department course for this patient. I have also personally directed, reviewed, and agree with the discharge instructions and disposition.
[2018-02-13 11:36] LABS: SQUAMOUS EPITHIAL 1 /hpf (0-5); URINE AMORPHOUS SEDIMENT FEW /ul (<OCC); URINE BILIRUBIN NEGATIVE (NEGATIVE); URINE BLOOD 3+ (NEGATIVE); URINE CLARITY Hazy (Clear); URINE COLOR Yellow (YELLOW); URINE GLUCOSE (UA) NORMAL (Normal); URINE LEUKOCYTE ESTERASE TRACE Leu/uL (Negative); URINE PROTEIN NEGATIVE (NEGATIVE); URINE UROBILINOGEN NORMAL mg/dL (0.2-1.0)
--- NOTE | 2018-02-13 13:18 | US ---
Date of service: 02/13/2018 Indication: Pelvic pain, bleeding,? Miscarriage Comparison: 1st trimester ultrasound performed 12/27/17 Technique: Real-time transabdominal pelvic ultrasound was performed. In addition a transvaginal pelvic ultrasound was necessary to better depict pelvic anatomy. Findings: Uterus measures approximately 11.1 x 6.7 x 8.1 cm. Anteverted. Cervix length measures 3.3 cm. Evidence of an intrauterine gestational sac which measures 3.0 cm and is compatible with a gestational age of 7 weeks 6 days. Evidence of multiloculated yolk sac with each loculation measuring approximately 1.6 cm, 1.3 cm, and 0.6 cm. No evidence of pole. The right ovary measures 3.0 x 1.5 x 2.6 cm and contains evidence of 1.9 x 1.5 x 1.3 cm and 2.2 x 1.5 x 1.6 cm corpus luteal cysts. The left ovary measures 2.7 x 1.8 x 2.4 cm. Flow was demonstrated to both ovaries. Impression: Intrauterine gestational sac contains evidence of multiloculated yolk sac with visualized loculations measuring approximately 1.6 cm, 1.3 cm, and 0.6 cm. No evidence of pole. Correlate clinically for possibility of anembryonic / failure. Recommend PARKS RECREATION COORDINATOR consultation and continued close interval follow-up. Two complex right ovarian cysts. Findings discussed with Dr. Whitt on 02/13/18 at 1:11 p.m.
[2018-02-13 16:54] VITALS: BP 106/76; PULSE 86; RESP 26; TEMP 98.4; O2SAT 97
== END 2018-02-13 16:51 | disposition home or self-care (01) ==
LOC: C.ER 09:35
DX: O20.0 Threatened abortion (principal); O99.011 Anemia complicating pregnancy, first trimester; Z3A.01 Less than 8 weeks gestation of pregnancy
CPT/HCPCS: 76805; 76817; 80053; 81001; 84702; 85025; 86850; 86900; 96361; 96374; 96376; 99285; J2270; J7030

== ENCOUNTER 2018-02-15 22:24 | Observation (INO) | payer SELFPAY ==
[2018-02-15 22:24] VITALS: BMI 23.0
[2018-02-15] MEDS ORDERED: Sodium Chloride 0.9% 1,000 ML IV ONE (23:20)
--- NOTE | 2018-02-15 23:22 | C.PDOC ---
History Of Present Illness 42 year old female presents to the ED c/o several abdominal pain and persistent vaginal bleeding. Patient was seen in the ED 2 days ago for same. Patient reports vaginal bleeding still persists. Patient denies fever, chills, nausea, vomit, diarrhea, back pain, weakness, numbness. Chief Complaint (Nursing): Female Genitourinary History Per: Patient History/Exam Limitations: no limitations Onset/Duration Of Symptoms: Days Current Symptoms Are (Timing): Still Present Quality Of Discomfort: "Pain" Associated Symptoms: denies: Nausea, Vomiting, Loss Of Appetite, Constipation, Urinary Symptoms Recent travel outside of the [place]: No Additional History Per: Patient Abnormal Vaginal Bleeding: Yes Last Menstral Period: 11/22/17 Past Medical History Reviewed: Historical Data, Nursing Documentation, Vital Signs Vital Signs: Last Vital Signs Temp 98 F 02/15/18 22:29 Pulse 94 H 02/15/18 22:29 Resp 20 02/15/18 22:29 BP 115/70 02/15/18 22:29 Pulse Ox 99 02/15/18 22:29 - Medical History PMH: No Chronic Diseases Denies: Chronic Kidney Disease Surgical History: No Surg Hx - [facility] Procedures EXTRACTION OF PRODUCTS OF CONCEPTION, RETAINED, VIA OPENING (07/15/16) Family History: States: Unknown Family Hx - Social History Hx Tobacco Use: No Hx Alcohol Use: No Hx Substance Use: No - Immunization History Hx Tetanus Toxoid Vaccination: No Hx Influenza Vaccination: No Hx Pneumococcal Vaccination: No Review Of Systems Constitutional: Negative for: Fever, Chills Cardiovascular: Negative for: Chest Pain Respiratory: Negative for: Shortness of Breath Gastrointestinal: Positive for: Abdominal Pain. Negative for: Nausea, Vomiting Genitourinary: Positive for: Vaginal Bleeding. Negative for: Dysuria, Hematuria Musculoskeletal: Negative for: Back Pain Skin: Negative for: Rash Neurological: Negative for: Weakness, Numbness Physical Exam - Physical Exam Appears: Non-toxic, In Acute Distress Skin: Normal Color, Warm, Dry Head: Atraumatic, Normacephalic Eye(s): bilateral: Normal Inspection Oral Mucosa: Moist Neck: Normal ROM, Supple Chest: Symmetrical Cardiovascular: Rhythm Regular Respiratory: Normal Breath Sounds, No Rales, No Rhonchi, No Wheezing Gastrointestinal/Abdominal: Soft, Tenderness (Lower abdomen), No Guarding, No Rebound Extremity: Normal ROM, No Tenderness, No Swelling Neurological/Psych: Oriented x3, Normal Speech, Normal Cognition Gait: Steady ED Course And Treatment - Laboratory Results Result Diagrams: 02/15/18 23:32 02/15/18 23:32 O2 Sat by Pulse Oximetry: 99 (ON RA) Pulse Ox Interpretation: Normal - CT Scan/US Pelvic US Other Rad Studies (CT/US): Read By Radiologist, Radiology Report Reviewed CT/US Interpretation: Ultrasound of the pelvis. Indication: Vaginal bleeding. Missed . Comparison: 02/13/2018. Technique: Transabdominal and transvaginal ultrasound images are obtained. Findings: Uterus measures 11.7x6.2x7 cm. Inhomogeneous diffuse thickening of the endometrium with increased vascularity suspicious for retained products of conception. Fluid is noted in the endocervical canal containing clots. Patient is actively bleeding during the exam. The right ovary was not visualized. Normal left ovary measuring 2.9x2.8x2.6 cm. Impression: Heterogeneous thickening of the endometrium with suspected retained products of conception. . Electronically signed on Feb 16, 2018 2:17:40 AM EST by: Fernando Workman M.D., Certified by ABR, MSK, Neuroradiology Medical Decision Making Medical Decision Making: Plan: * Labs * Morphine 2 mg IVP * IV fluids * Pelvic US 23:15- called Viri Gamez OB occupational therapist home based for consult regarding the patient and is requesting Pelvic US 02:21 - OB occupational therapist home based notified about US results Disposition Discussed With DrOfelia: Almita Trejo Doctor Will See Patient In The: Hospital Counseled Patient/Family Regarding: Diagnosis - Disposition Disposition: HOSPITALIZED Disposition Time: 03:09 Condition: STABLE Forms: [facility] (Mozambican) - Clinical Impression Clinical Impression: Vaginal bleeding, Retained products of conception - Scribe Statement The provider has reviewed the documentation as recorded by the Scribe Jorge Aguiar All medical record entries made by the Scribe were at my direction and personally dictated by me. I have reviewed the chart and agree that the record accurately reflects my personal performance of the history, physical exam, medical decision making, and the department course for this patient. I have also personally directed, reviewed, and agree with the discharge instructions and disposition.
[2018-02-15] MEDS ORDERED: Sodium Chloride 0.9% 1,000 ML ONE (23:36)
[2018-02-15 23:37] LABS: EOS # 0.1 K/uL (0.0-0.7); HEMOGLOBIN 10.5 g/dL (11.0-16.0)
[2018-02-15 23:41] LABS: BASO % 0.6 % (0.0-2.0); LYMPH # 2.5 K/uL (1.0-4.3); LYMPH % 33.4 % (20.0-40.0); MEAN CELL VOLUME 89.3 fL (81.0-99.0); MEAN CORPUSCULAR HEMOGLOBIN 30.9 pg (27.0-31.0); MEAN CORPUSCULAR HGB CONC 34.6 g/dL (33.0-37.0); MEAN PLATELET VOLUME 8.5 fL (7.2-11.7); MONO # 0.6 K/uL (0.0-0.8); MONO % 8.1 % (0.0-10.0); NEUT # 4.3 K/uL (1.8-7.0); NEUT % 56.9 % (50.0-75.0); RBC 3.39 Mil/uL (3.80-5.20); RED CELL DISTRIBUTION WIDTH 13.2 % (11.5-14.5); WHITE BLOOD COUNT 7.5 K/uL (4.8-10.8)
[2018-02-15 23:42] LABS: INR 1.1; PROTHROMBIN TIME 12.2 SECONDS (9.7-12.2)
[2018-02-16] LABS: ALB/GLOB RATIO 1.4 (1.0-2.1); ALT/SGPT 18 U/L (9-52); AST/SGOT 18 U/L (14-36); BLOOD UREA NITROGEN 6 mg/dL (7-17); CALCIUM 8.9 mg/dl (8.6-10.4); GFR NON-AFRICAN AMERICAN > 60
--- NOTE | 2018-02-16 03:27 | CP.PCM.CON ---
History of Present Illness - History of Present Illness History of Present Illness: 42yo at 12+3wks EDC: 08/27/18 consistent with LMP: 11/22/17 presents with vaginal bleeding since that has become increasingly heavy and now with blot clots. Pt denies chest pain, shortness of breath and dizziness. Pt was seen in ER on 02/13/18 and diagnosed with missed . Review of Systems - Review of Systems Review of Systems: No Acute Distress - Cardiovascular Cardiovascular: absent: Chest Pain - Reproductive: Female Reproductive:Female: Abnormal Vaginal Bleeding - Menstruation Additional comments: LMP: 11/22/17 Past Patient History - Infectious Disease Hx of Infectious Diseases: None - Tetanus Immunizations Tetanus Immunization: Unknown - Past Medical History & Family History Past Medical History?: No - Past Social History Smoking Status: Never Smoked Chewing Tobacco Use: No Cigar Use: No Alcohol: None Drugs: Denies - CARDIAC Hx Cardiac Disorders: No - PULMONARY Hx Respiratory Disorders: No - NEUROLOGICAL Hx Neurological Disorder: No - HEENT Hx HEENT Problems: No - RENAL Hx Chronic Kidney Disease: No - ENDOCRINE/METABOLIC Hx Endocrine Disorders: No - HEMATOLOGICAL/ONCOLOGICAL Hx Blood Disorders: No - INTEGUMENTARY Hx Dermatological Problems: No - MUSCULOSKELETAL/RHEUMATOLOGICAL Hx Musculoskeletal Disorders: No - GASTROINTESTINAL Hx Gastrointestinal Disorders: No - GENITOURINARY/GYNECOLOGICAL Hx Genitourinary Disorders: No - PSYCHIATRIC Hx Substance Use: No - SURGICAL HISTORY Hx Surgeries: No Hx Dilation and Curettage: Yes (2015) - ANESTHESIA Hx Anesthesia: No Meds Allergies/Adverse Reactions: Allergies Allergy/AdvReac Type Severity Reaction Status Date / Time No Known Allergies Allergy Verified 02/03/18 17:55 - Medications Medications: Current Medications Sodium Chloride (Sodium Chloride 0.9%) 1,000 mls @ 100 mls/hr IV .Q10H ONE Stop: 02/16/18 09:19 Last Admin: 02/15/18 23:59 Dose: 100 mls/hr Physical Exam - Constitutional Appears: No Acute Distress - Exam Additional comments: (+) moderate vaginal bleeding open cervical os Results - Vital Signs Recent Vital Signs: Last Vital Signs Temp 98 F 02/15/18 22:29 Pulse 72 02/16/18 01:22 Resp 20 02/16/18 01:22 BP 100/54 L 02/16/18 01:22 Pulse Ox 99 02/16/18 03:09 - Labs Result Diagrams: 02/15/18 23:32 02/15/18 23:32 Labs: Laboratory Results - last 24 hr 02/15/18 02/15/18 02/15/18 23:32 23:32 23:32 WBC 7.5 RBC 3.39 L Hgb 10.5 L Hct 30.3 L MCV 89.3 MCH 30.9 MCHC 34.6 RDW 13.2 Plt Count 235 MPV 8.5 Neut % (Auto) 56.9 Lymph % (Auto) 33.4 Pershing % (Auto) 8.1 Eos % (Auto) 1.0 Baso % (Auto) 0.6 Neut # (Auto) 4.3 Lymph # (Auto) 2.5 Pershing # (Auto) 0.6 Eos # (Auto) 0.1 Baso # (Auto) 0.0 PT 12.2 INR 1.1 APTT 30 Sodium 137 Potassium 3.8 Chloride 105 Carbon Dioxide 24 Anion Gap 12 BUN 6 L Creatinine 0.5 L Est GFR ( Amer) > 60 Est GFR (Non-Af Amer) > 60 Random Glucose 79 Calcium 8.9 Total Bilirubin 0.4 AST 18 ALT 18 Alkaline Phosphatase 43 Total Protein 6.9 Albumin 4.0 Globulin 2.9 Albumin/Globulin Ratio 1.4 Beta HCG, Quant 3487.70 Blood Type Antibody Screen 02/15/18 23:32 WBC RBC Hgb Hct MCV MCH MCHC RDW Plt Count MPV Neut % (Auto) Lymph % (Auto) Pershing % (Auto) Eos % (Auto) Baso % (Auto) Neut # (Auto) Lymph # (Auto) Pershing # (Auto) Eos # (Auto) Baso # (Auto) PT INR APTT Sodium Potassium Chloride Carbon Dioxide Anion Gap BUN Creatinine Est GFR ( Amer) Est GFR (Non-Af Amer) Random Glucose Calcium Total Bilirubin AST ALT Alkaline Phosphatase Total Protein Albumin Globulin Albumin/Globulin Ratio Beta HCG, Quant Blood Type O POSITIVE Antibody Screen Negative - Impressions Impression: Incomplete Assessment & Plan - Assessment and Plan (Free Text) Assessment: 42yo at 12+3wks - Incomplete Plan: 1) Type and crossmatch 2 units PRBCS 2) Pelvic US consistent with retained POC- Pt counseled for Suction Dilation and Curettage at this time. Risks/benefits discussed with patient and partner at bedside using incising machine operator. Pt agrees to procedure at this time. Consent for procedure and blood consent obtained and in chart. 3) Anesthesia/Nursing mold yarn supervisor aware- prep for OR 4) Doxycycline IV x 1 dose prior to procedure 5) continue to monitor Piper Trejo D.O (ENGAGEMENT EXECUTIVE Attending On-Call) - Date & Time Date: 02/16/18 Time: 03:37
[2018-02-16] MEDS ORDERED: Sodium Chloride 0.9% 1,000 ML IV ONE (03:44)
[2018-02-16 03:56] LABS: HEMOGLOBIN 9.1 g/dL (11.0-16.0); MEAN CELL VOLUME 89.1 fL (81.0-99.0); MEAN CORPUSCULAR HEMOGLOBIN 31.4 pg (27.0-31.0); MEAN CORPUSCULAR HGB CONC 35.3 g/dL (33.0-37.0); MEAN PLATELET VOLUME 8.4 fL (7.2-11.7); RBC 2.91 Mil/uL (3.80-5.20); RED CELL DISTRIBUTION WIDTH 13.6 % (11.5-14.5); WHITE BLOOD COUNT 8.9 K/uL (4.8-10.8)
[2018-02-16] MEDS ORDERED: Etomidate 20 mg/10ml Inj IV ONE (05:00)
[2018-02-16] MEDS ORDERED: Midazolam 2 MG/2 ML VIAL ONE (05:00)
[2018-02-16] MEDS ORDERED: HYDROmorphone 0.5 mg/0.5 ml ISec IVP PRN (05:36)
[2018-02-16] MEDS ORDERED: Lactated Ringer's 1,000 ML IV SCH (06:45)
--- NOTE | 2018-02-16 09:08 | US ---
Pelvic ultrasound HISTORY: Vaginal bleeding. . COMPARISON: 02/13/2018. Technique: Real-time sonography was performed through the pelvis utilizing transabdominal and transvaginal techniques. Findings: Uterus: 11.6 x 6.0 x 7.5 centimeters. Heterogeneous echotexture. Anteverted. No discrete intrauterine identified. Thickened and heterogeneous endometrium measuring up to 2.7 centimeters with associated vascularity. Thickened and heterogeneous cervix with fluid distension of the cervical canal as well as a suggestion of blood clots measuring up to 3.8 centimeters. No free fluid in the pelvic cul-de-sac. Right ovary: Not well visualized. Left ovary: 2.9 x 2.8 x 2.6 centimeters. Normal flow. Positive beta hCG measuring 3487. Impression: Positive test. No discrete intrauterine . In the setting of a positive test and lack of discrete intrauterine , considerations include missed versus early versus ectopic . Thickened heterogeneous endometrium measuring up to 2.7 centimeters with associated vascularity. This is concerning for a missed with possible retained products of conception. Clinical correlation. Continued interval follow-up. Thickened heterogeneous cervix with fluid distension and blood clots. A preliminary report was generated at 2:17 a.m. on 02/16/[address]Abbas Workman from [employer].
[2018-02-16 09:13] VITALS: PULSE 75; RESP 18; TEMP 98.2; O2SAT 99
--- NOTE | 2018-02-16 10:43 | PCM.OP ---
Operative Report - Operative Report Date of Surgery/Procedure: 02/16/18 Time of Surgery/Procedure: 04:30 Surgeon: Dr. Trejo Artificial Cherry Maker: N/A Anesthesia/Sedation: General Pre-Operative Diagnosis: Incomplete Post-Operative Diagnosis: Incomplete Indication for Surgery: Retained Products of Conception Operative Findings: anteverted 12-14 week sized uterus cervical os dilated to 2cm products at the external os Procedure/Operation Description: Suction Dilation and Curettage Estimated Blood Loss: 10 Blood Replaced: No Sponge/Instrument Count: Correct Drains: 500cc clear urine Complications: none Specimen: Products of conception Discharge & Condition: stable, for discharge home in afternoon
[2018-02-16 11:06] LABS: BASO # 0.1 K/uL (0.0-0.2); BASO % 0.9 % (0.0-2.0); EOS # 0.1 K/uL (0.0-0.7); EOS % 1.3 % (0.0-4.0); HEMOGLOBIN 8.1 g/dL (11.0-16.0); MEAN CORPUSCULAR HEMOGLOBIN 31.7 pg (27.0-31.0); MEAN CORPUSCULAR HGB CONC 35.6 g/dL (33.0-37.0); MEAN PLATELET VOLUME 8.3 fL (7.2-11.7); MONO # 0.4 K/uL (0.0-0.8); MONO % 5.6 % (0.0-10.0); NEUT % 61.2 % (50.0-75.0); NRBC % 0.1 % (0.0-2.0); RBC 2.55 Mil/uL (3.80-5.20); RED CELL DISTRIBUTION WIDTH 13.7 % (11.5-14.5); WHITE BLOOD COUNT 6.5 K/uL (4.8-10.8)
--- NOTE | 2018-02-16 12:05 | CP.PCM.PN ---
Subjective - Date & Time of Evaluation Date of Evaluation: 02/16/18 Time of Evaluation: 12:00 - Subjective Subjective: Pt is s/p D&C for incomplete POD #0. Pt with low BP and stable pulse. Repeat CBC 8.1 from 9.1 preop. Pt not yet ambulating. Pain controlled, no active vaginal bleeding Objective - Vital Signs/Intake and Output Vital Signs (last 24 hours): Temp Pulse Resp BP Pulse Ox 98.2 F 75 18 85/55 L 99 02/16/18 08:00 02/16/18 08:00 02/16/18 08:00 02/16/18 08:00 02/16/18 08:00 Intake and Output: 02/16/18 02/16/18 06:59 18:59 Intake Total 800 Output Total 75 Balance 800 -75 - Medications Medications: Current Medications Acetaminophen (Tylenol 325mg Tab) 650 mg PO Q6 PRN PRN Reason: Pain, Mild (1-3) Last Admin: 02/16/18 11:01 Dose: 650 mg Hydromorphone HCl (Dilaudid) 0.5 mg IVP Q10M PRN PRN Reason: Pain, moderate (4-7) Doxycycline Hyclate 100 mg/ (Sodium Chloride) 100 mls @ 100 mls/hr IVPB Q12H JAVAN; Protocol Last Admin: 02/16/18 04:09 Dose: 100 mls/hr Lactated Ringer's (Lactated Ringer's) 1,000 mls @ 125 mls/hr IV .Q8H JAVAN Last Admin: 02/16/18 06:59 Dose: 125 mls/hr Ondansetron HCl (Zofran Inj) 4 mg IVP Q6H PRN PRN Reason: Nausea/Vomiting Last Admin: 02/16/18 06:55 Dose: 4 mg - Labs Labs: 02/16/18 11:00 02/15/18 23:32 PT 12.2 SECONDS (9.7-12.2) 02/15/18 23:32 INR 1.1 02/15/18 23:32 APTT 30 SECONDS (21-34) 02/15/18 23:32 Assessment and Plan - Assessment and Plan (Free Text) Assessment: 42 yo s/p D&C for incomplete POD #0 Plan: - Stable, afebrile - Low BP - orthostats now, will repeat CBC in 4 hours - encourage OOB, ambulation with assistance, will reevaluate after CBC
[2018-02-16 12:16] VITALS: BP 97/57
[2018-02-16 16:49] LABS: HEMOGLOBIN 7.8 g/dL (11.0-16.0); MEAN CELL VOLUME 89.4 fL (81.0-99.0); MEAN CORPUSCULAR HEMOGLOBIN 31.5 pg (27.0-31.0); MEAN CORPUSCULAR HGB CONC 35.3 g/dL (33.0-37.0); MEAN PLATELET VOLUME 8.6 fL (7.2-11.7); RBC 2.47 Mil/uL (3.80-5.20); RED CELL DISTRIBUTION WIDTH 13.4 % (11.5-14.5); WHITE BLOOD COUNT 6.2 K/uL (4.8-10.8)
== END 2018-02-16 17:28 | disposition home or self-care (01) ==
LOC: C.ER 22:24 → INTOOBSV 02-16 03:10 → C.9P 02-16 03:10 → C.4M 02-16 05:32
PROVIDERS: ADMIT Obstetrics & Gynecology; ATTEND Obstetrics & Gynecology
DX: O03.4 Incomplete spontaneous abortion without complication (principal)
CPT/HCPCS: 36415; 59820; 76830; 76856; 80053; 84702; 85025; 85027; 85610; 85730; 86850; 86900; 86920; 88233; 88262; 96365; 96374; G0378; J1885; J2210; J2250; J2270; J2405; J3010; J7030; J7120

== ENCOUNTER 2018-03-14 07:47 | Emergency (ER) | payer OTHER ==
[2018-03-14 07:48] VITALS: BMI 23.0
[2018-03-14 09:00] LABS: BASO % 0.8 % (0.0-2.0); EOS # 0.1 K/uL (0.0-0.7); EOS % 1.6 % (0.0-4.0); LYMPH # 1.7 K/uL (1.0-4.3); LYMPH % 34.3 % (20.0-40.0); MEAN CORPUSCULAR HGB CONC 34.4 g/dL (33.0-37.0); MEAN PLATELET VOLUME 8.5 fL (7.2-11.7); MONO # 0.4 K/uL (0.0-0.8); MONO % 7.3 % (0.0-10.0); NEUT # 2.9 K/uL (1.8-7.0); NRBC % 0.1 % (0.0-2.0); RBC 3.61 Mil/uL (3.80-5.20); WHITE BLOOD COUNT 5.1 K/uL (4.8-10.8)
[2018-03-14] MEDS ORDERED: Sodium Chloride 0.9% 1,000 ML IV ONE (09:00)
[2018-03-14 09:01] LABS: HEMOGLOBIN 11.6 g/dL (11.0-16.0); MEAN CELL VOLUME 93.3 fL (81.0-99.0)
[2018-03-14 09:06] LABS: INR 1.1; PROTHROMBIN TIME 11.7 SECONDS (9.7-12.2)
[2018-03-14 09:23] LABS: ALB/GLOB RATIO 1.6 (1.0-2.1); ALBUMIN 4.6 g/dL (3.5-5.0); ALT/SGPT 18 U/L (9-52); AST/SGOT 24 U/L (14-36); BLOOD UREA NITROGEN 14 mg/dL (7-17); GFR NON-AFRICAN AMERICAN > 60
--- NOTE | 2018-03-14 10:09 | C.PDOC ---
History Of Present Illness 42 year old female presents to the ED complaining of worsening pelvic pain and heavy bleeding ongoing for 4 days ago. Reports she went to see sales relationship manager for pelvic pain status post D&C for missed on 02/17/12. She was sent by sales relationship manager to [facility] on 03/03/18 for ultrasound which showed intrauterine "structure" suspicious for retained products of conception. patient sts pain got worse and bleeding for the last 4 days. Denies any dysuria, hematuria, fever, chills, nausea, vomiting, diarrhea, or any other complaints. Chief Complaint (Nursing): Female Genitourinary History Per: Patient History/Exam Limitations: no limitations Onset/Duration Of Symptoms: Days (4) Current Symptoms Are (Timing): Still Present Quality Of Discomfort: "Pain" Associated Symptoms: Urinary Symptoms (vaginal bleeding ). denies: Fever, Chills, Nausea, Vomiting, Diarrhea Abnormal Vaginal Bleeding: Yes Past Medical History Reviewed: Historical Data, Nursing Documentation, Vital Signs Vital Signs: Last Vital Signs Temp 97.9 F 03/14/18 08:01 Pulse 73 03/14/18 08:01 Resp 18 03/14/18 08:01 BP 118/68 03/14/18 08:01 Pulse Ox 100 03/14/18 08:01 - Medical History PMH: No Chronic Diseases Denies: Chronic Kidney Disease Other Surgeries: D&C - [facility] Procedures EXTRACTION OF PRODUCTS OF CONCEPTION, RETAINED, VIA OPENING (07/15/16) Family History: States: No Known Family Hx - Social History Hx Tobacco Use: No Hx Alcohol Use: No Hx Substance Use: No - Immunization History Hx Tetanus Toxoid Vaccination: No Hx Influenza Vaccination: No Hx Pneumococcal Vaccination: No Review Of Systems Except As Marked, All Systems Reviewed And Found Negative. Constitutional: Negative for: Fever, Chills Gastrointestinal: Negative for: Nausea, Vomiting, Diarrhea Genitourinary: Positive for: Vaginal Bleeding, Pelvic Pain. Negative for: Dysuria, Hematuria Physical Exam - Physical Exam Appears: Non-toxic, No Acute Distress Skin: Warm, Dry, No Rash Head: Normacephalic Eye(s): bilateral: Normal Inspection Nose: Normal Oral Mucosa: Moist Neck: Supple Chest: Symmetrical Cardiovascular: Rhythm Regular Respiratory: Normal Breath Sounds, No Rales, No Rhonchi, No Wheezing Gastrointestinal/Abdominal: Soft, Tenderness (suprapubic tenderness), No Distention, No Guarding, No Rebound Neurological/Psych: Oriented x3, Normal Speech Gait: Steady ED Course And Treatment - Laboratory Results Result Diagrams: 03/14/18 08:51 03/14/18 08:51 O2 Sat by Pulse Oximetry: 100 (RA) Pulse Ox Interpretation: Normal - CT Scan/US Pelvic US Other Rad Studies (CT/US): Read By Radiologist, Radiology Report Reviewed CT/US Interpretation: Accession No. : [id number]. Patient Name / ID : HEATH STARR / [id number]. Exam Date : 03/14/2018 10:21:41 ( Approved ). Study Comment : Sex / Age : F / 42Y. Creator : Disha Ruiz MD. Dictator : Disha Ruiz MD. Wood Car Builder : Immigration Coordinator : Disha Ruiz MD. Approver2 : Report Date : 03/14/2018 10:59:00. My Comment : . Date of service: 03/14/2018. HISTORY: vaginal bleeding, r/o retained products. COMPARISON: Transvaginal pelvic ultrasound performed 03/05/18. TECHNIQUE: Real-time transabdominal pelvic ultrasound was performed. In addition a transvaginal pelvic ultrasound was necessary to better depict pelvic anatomy. FINDINGS: UTERUS: Measures 9.5 x 4.3 x 6.0 cm. Anteverted. 2.1 x 2.1 x 1.9 cm heterogeneous mass consistent with mid uterine fibroid. ENDOMETRIUM: Measures 5 mm in diameter. CERVIX: Cervix length measures approximately 3.3 cm. Small fluid noted within the cervix. RIGHT OVARY: Measures 3.5 x 2.4 x 3.5 cm. Blood flow is demonstrated. 2.8 x 1.8 x 2.6 cm cyst. LEFT OVARY: Measures 2.7 x 1.8 x 3.5 cm. Blood flow is demonstrated. FREE FLUID: Small pelvic free fluid, cul-de-sac. OTHER FINDINGS: None. IMPRESSION: 2.1 x 2.1 x 1.9 cm mid uterine fibroid. 2.8 cm right ovarian cyst. Fluid noted in the cervix and cul-de-sac. Progress Note: Patient given IV fluids. Blood collected and sent to the lab for analysis. P)elvic US ordered and negative for retained pruducts, small fibrome and ovarian cyst noticed. Beta HCG is down. Patient was instructed to f/u with OBGYN within 1-2 days and to return to ED if feel worse. Copies of all labs and US were given to the patient. Disposition - Disposition Disposition: HOME/ ROUTINE Disposition Time: 12:10 Condition: STABLE Additional Instructions: Follow up with your PMD within 1-2 days. Return to ED if feel worse. Prescriptions: MedroxyPROGESTERone [Provera] 1 tab PO DAILY #10 tab Instructions: Heavy Periods (DC) Forms: [employer] (Macedonian) - Clinical Impression Clinical Impression: Vaginal bleeding - PA / ADVANCED MANUFACTURING VICE PRESIDENT / Resident Statement MD/DO has reviewed & agrees with the documentation as recorded. - Scribe Statement The provider has reviewed the documentation as recorded by the Scribe Juju Barba All medical record entries made by the Margaret were at my direction and personally dictated by me. I have reviewed the chart and agree that the record accurately reflects my personal performance of the history, physical exam, medical decision making, and the department course for this patient. I have also personally directed, reviewed, and agree with the discharge instructions and disposition.
--- NOTE | 2018-03-14 11:02 | US ---
Date of service: 03/14/2018 HISTORY: vaginal bleeding, r/o retained products COMPARISON: Transvaginal pelvic ultrasound performed 03/05/18 TECHNIQUE: Real-time transabdominal pelvic ultrasound was performed. In addition a transvaginal pelvic ultrasound was necessary to better depict pelvic anatomy. FINDINGS: UTERUS: Measures 9.5 x 4.3 x 6.0 cm. Anteverted. 2.1 x 2.1 x 1.9 cm heterogeneous mass consistent with mid uterine fibroid. ENDOMETRIUM: Measures 5 mm in diameter. CERVIX: Cervix length measures approximately 3.3 cm. Small fluid noted within the cervix. RIGHT OVARY: Measures 3.5 x 2.4 x 3.5 cm. Blood flow is demonstrated. 2.8 x 1.8 x 2.6 cm cyst. LEFT OVARY: Measures 2.7 x 1.8 x 3.5 cm. Blood flow is demonstrated. FREE FLUID: Small pelvic free fluid, cul-de-sac. OTHER FINDINGS: None. IMPRESSION: 2.1 x 2.1 x 1.9 cm mid uterine fibroid. 2.8 cm right ovarian cyst. Fluid noted in the cervix and cul-de-sac.
[2018-03-14 11:22] VITALS: TEMP 98.8
[2018-03-14 12:32] VITALS: BP 127/71; PULSE 64; RESP 17
[2018-03-14 17:19] VITALS: O2SAT 100
== END 2018-03-14 12:46 | disposition home or self-care (01) ==
LOC: C.ER 07:47
DX: N93.9 Abnormal uterine and vaginal bleeding, unspecified (principal); Z98.890 Other specified postprocedural states
CPT/HCPCS: 76830; 76856; 80053; 84702; 85025; 85610; 85730; 86850; 86900; 96360; 99285; J7030

== ENCOUNTER 2018-04-11 07:40 | Outpatient (CLI) | payer SELFPAY | END 2018-04-11 07:41 | disposition home or self-care (01) | LOC: C.LAB 07:40 | DX: N92.2 Excessive menstruation at puberty (principal) ==

== ENCOUNTER 2018-04-18 14:22 | Outpatient (CLI) | payer SELFPAY | END 2018-04-18 14:23 | disposition home or self-care (01) | LOC: C.USIC 14:23 ==

== ENCOUNTER 2018-04-30 19:11 | Emergency (ER) | payer SELFPAY ==
[2018-04-30 19:11] VITALS: BMI 23.0
[2018-04-30 19:24] VITALS: O2SAT 98
[2018-04-30] MEDS ORDERED: Sodium Chloride 0.9% 1,000 ML IV ONE (19:39)
[2018-04-30] MEDS ORDERED: Iohexol 240 (50 ml) PO ONE (19:40)
--- NOTE | 2018-04-30 19:41 | C.PDOC ---
History Of Present Illness 42 year old female presents to the ER with a complaint of abdominal pain for the past 2-3 days. The pain is mostly left sided, radiates to the back, and is associated with slight nausea. Denies vomiting or dysuria. Chief Complaint (Nursing): Abdominal Pain History Per: Patient History/Exam Limitations: no limitations Onset/Duration Of Symptoms: Days (2-3) Current Symptoms Are (Timing): Still Present Location Of Pain/Discomfort: LUQ, LLQ Radiation Of Pain To:: None Quality Of Discomfort: Unable To Describe Associated Symptoms: Nausea. denies: Vomiting, Other (Dysuria) Exacerbating Factors: None Alleviating Factors: None Recent travel outside of the [place]: No Abnormal Vaginal Bleeding: No Past Medical History Reviewed: Historical Data, Nursing Documentation, Vital Signs Vital Signs: Last Vital Signs Temp 97.4 F L 04/30/18 19:15 Pulse 81 04/30/18 19:15 Resp 22 04/30/18 19:15 BP 109/79 04/30/18 19:15 Pulse Ox 98 04/30/18 19:15 - Medical History PMH: Denies: Chronic Kidney Disease - [facility] Procedures EXTRACTION OF PRODUCTS OF CONCEPTION, RETAINED, VIA OPENING (07/15/16) Family History: States: No Known Family Hx - Social History Hx Tobacco Use: No Hx Alcohol Use: No Hx Substance Use: No - Immunization History Hx Tetanus Toxoid Vaccination: No Hx Influenza Vaccination: No Hx Pneumococcal Vaccination: No Review Of Systems Constitutional: Negative for: Fever, Chills Cardiovascular: Negative for: Chest Pain, Palpitations Respiratory: Negative for: Cough, Shortness of Breath Gastrointestinal: Positive for: Nausea, Abdominal Pain. Negative for: Vomiting Genitourinary: Negative for: Dysuria, Hematuria Neurological: Negative for: Weakness, Numbness Physical Exam - Physical Exam Appears: Non-toxic, No Acute Distress Skin: Normal Color, Warm, Dry Head: Atraumatic, Normacephalic Eye(s): bilateral: Normal Inspection Oral Mucosa: Moist Neck: Normal, Supple Chest: Symmetrical, No Tenderness Cardiovascular: Rhythm Regular Respiratory: Normal Breath Sounds, No Rales, No Rhonchi, No Wheezing Gastrointestinal/Abdominal: Soft, Tenderness (LUQ, LLQ), No Guarding, No Rebound Rectal: Other (Negative) Back: No CVA Tenderness Neurological/Psych: Oriented x3, Normal Speech ED Course And Treatment - Laboratory Results Result Diagrams: 04/30/18 19:49 04/30/18 19:49 O2 Sat by Pulse Oximetry: 98 (Room air) Pulse Ox Interpretation: Normal Progress Note: CT abd/pel, blood work, and urinalysis ordered. IV fluids, tor adol, and zofran administered. Disposition Counseled Patient/Family Regarding: Diagnosis - Disposition Referrals: [facility] [Outside] Disposition: HOME/ ROUTINE Disposition Time: 23:25 Condition: STABLE Prescriptions: Ciprofloxacin HCl [Cipro] 250 mg PO BID #14 tab Dicyclomine [Bentyl] 10 mg PO QID #14 cap Instructions: Inflammatory Bowel Disease (DC), Acute Abdomen (Belly Pain) Forms: [employer] (Yoruba), Gen Discharge Inst Guinean Print Language: INDONESIAN - POA Present On Arrival: None - Clinical Impression Clinical Impression: Abdominal pain, Enteritis - Scribe Statement The provider has reviewed the documentation as recorded by the Scribkirill Meza All medical record entries made by the Rowdyibkirill were at my direction and personally dictated by me. I have reviewed the chart and agree that the record accurately reflects my personal performance of the history, physical exam, medical decision making, and the department course for this patient. I have also personally directed, reviewed, and agree with the discharge instructions and disposition.
[2018-04-30] MEDS ORDERED: Sodium Chloride 0.9% 1,000 ML ONE (19:53)
[2018-04-30] MEDS ORDERED: Iohexol 240 (50 ml) ONE (19:54)
[2018-04-30 20:01] LABS: BASO % 0.4 % (0.0-2.0); EOS # 0.1 K/uL (0.0-0.7); EOS % 1.5 % (0.0-4.0); HEMOGLOBIN 13.1 g/dL (11.0-16.0); LYMPH # 1.3 K/uL (1.0-4.3); LYMPH % 27.9 % (20.0-40.0); MEAN CELL VOLUME 90.9 fL (81.0-99.0); MEAN CORPUSCULAR HEMOGLOBIN 30.2 pg (27.0-31.0); MEAN CORPUSCULAR HGB CONC 33.2 g/dL (33.0-37.0); MEAN PLATELET VOLUME 8.4 fL (7.2-11.7); MONO # 0.5 K/uL (0.0-0.8); MONO % 10.8 % (0.0-10.0); NEUT # 2.8 K/uL (1.8-7.0); NEUT % 59.4 % (50.0-75.0); NRBC % 0.1 % (0.0-2.0); RBC 4.35 Mil/uL (3.80-5.20); RED CELL DISTRIBUTION WIDTH 12.5 % (11.5-14.5); WHITE BLOOD COUNT 4.7 K/uL (4.8-10.8)
[2018-04-30 20:03] LABS: HCG,QUALITATIVE URINE NEGATIVE (NEGATIVE)
[2018-04-30 20:04] LABS: SQUAMOUS EPITHIAL 1 /hpf (0-5); URINE BILIRUBIN NEGATIVE (NEGATIVE); URINE CLARITY Clear (Clear); URINE COLOR Colorless (YELLOW); URINE GLUCOSE (UA) NORMAL (Normal); URINE LEUKOCYTE ESTERASE NEG Leu/uL (Negative); URINE PROTEIN NEGATIVE (NEGATIVE); URINE UROBILINOGEN NORMAL mg/dL (0.2-1.0)
[2018-04-30 20:12] LABS: URINE BLOOD TRACE (NEGATIVE)
[2018-04-30 20:23] LABS: ALB/GLOB RATIO 1.4 (1.0-2.1); ALBUMIN 4.6 g/dL (3.5-5.0); ALT/SGPT 35 U/L (9-52); AST/SGOT 31 U/L (14-36); BLOOD UREA NITROGEN 10 mg/dL (7-17); CALCIUM 9.1 mg/dl (8.6-10.4); GFR NON-AFRICAN AMERICAN > 60; LIPASE 36 U/L (23-300)
[2018-04-30 23:41] VITALS: BP 106/69; PULSE 84; RESP 20; TEMP 98.3
--- NOTE | 2018-05-01 08:36 | CT ---
CT abdomen and pelvis HISTORY: Abdominal pain. Comparison: None available. TECHNIQUE: Multiple contiguous axial images were performed through the abdomen and pelvis with the use of intravenous contrast. Subsequently, sagittal and coronal reformatted images were obtained. This CT exam was performed using one or more of the following dose reduction techniques: Automated exposure control, adjustment of the mA and/or kV according to patient size, and/or use of iterative reconstruction technique. Findings: Mild atelectasis at the lung bases. No pleural or pericardial effusion. Liver is preserved. Contracted gallbladder. Spleen is preserved. Splenule. Adrenal glands are preserved. Pancreas is preserved. Distended stomach. Distended loops of small bowel in the upper and mid abdomen. Right kidney: No calculi or hydronephrosis. Left Kidney: No calculi or hydronephrosis. Urinary bladder is preserved. Heterogeneous uterus and bilateral adnexa. 2.3 centimeter left adnexal cyst. Underdistended sigmoid colon. Fecal retention in the remainder of the colon. Appendix is within normal limits. Few shotty para-aortic and inguinal lymph nodes. Few shotty mesenteric lymph nodes. Degenerative changes in the spine. Impression: 1. Fluid-filled and distended loops of small bowel in the upper mid abdomen which may represent an enteritis. Clinical correlation. 2. Contrast filled and distended stomach. 3. 2.3 centimeter left ovarian cyst. Correlation with pelvic ultrasound may be helpful if clinically indicated. Additional findings as above. A preliminary report was generated at 10:28 p.m. on 04/30/[address] Sammy Donohue from [facility].
== END 2018-04-30 23:41 | disposition home or self-care (01) ==
LOC: C.ER 19:11
DX: K52.9 Noninfective gastroenteritis and colitis, unspecified (principal); R10.12 Left upper quadrant pain
CPT/HCPCS: 74177; 80053; 81001; 83690; 84703; 85025; 96374; 96375; 99285; G0328; J1885; J2405; J7030; Q9966

== ENCOUNTER 2018-05-21 09:58 | Outpatient (CLI) | payer SELFPAY | END 2018-05-21 09:59 | disposition home or self-care (01) | LOC: C.PAT 09:58 | DX: N84.0 Polyp of corpus uteri (principal) ==

== ENCOUNTER 2018-05-26 10:24 | Day surgery (SDC) | payer SELFPAY ==
[2018-05-26 11:12] VITALS: BMI 21.6
[2018-05-26 11:16] VITALS: O2SAT 100
[2018-05-26] MEDS ORDERED: Propofol 10 mg/ml Inj (20 ML) ONE ×2 (14:29→15:01)
[2018-05-26] MEDS ORDERED: Midazolam 2 MG/2 ML VIAL ONE (14:30)
--- NOTE | 2018-05-26 15:18 | PCM.SURG1 ---
Surgeon's Initial Post Op Note - Surgeon's Notes Surgeon: Dr. Conde Rotary Furnace Tender: None Type of Anesthesia: General Endo Anesthesia Administered By: Dr. Kim Pre-Operative Diagnosis: 42 yo with Irregular menstrual cycle ,endometrial polyp Operative Findings: Av uterus with endometrial polyp Post-Operative Diagnosis: Same as above Operation Performed: Hysteroscopy Myosure D and C Specimen/Specimens Removed: EMC, ECC , polyp Estimated Blood Loss: EBL {In ML}: 10 Blood Products Given: N/A Drains Used: No Drains Post-Op Condition: Good Date of Surgery/Procedure: 05/26/18 Time of Surgery/Procedure: 15:18
[2018-05-26] MEDS ORDERED: Lactated Ringer's 1,000 ML IV ONE (15:22)
[2018-05-26 17:03] VITALS: BP 110/70; PULSE 66; RESP 18; TEMP 97
[2018-05-26] MEDS ORDERED: Etomidate 20 mg/10ml Inj IV ONE (19:24)
--- NOTE | 2018-05-27 09:26 | OP ---
PROCEDURE DATE: 05/26/2018 PREOPERATIVE DIAGNOSIS: A 42-year-old female with history of menorrhagia, irregular menstrual period, endometrial polyp. POSTOPERATIVE DIAGNOSIS: A 42-year-old female with history of menorrhagia, irregular menstrual period, endometrial polyp. PROCEDURE: Hysteroscopy, dilatation and curettage. SURGEON: Jacqueline Conde MD ANESTHESIA ADMINISTERED BY: Klever Dial MD TYPE OF ANESTHESIA: General LMA. FINDINGS: Anteverted uterus of approximately 8 to 10 weeks gestation. COMPLICATIONS: None. ESTIMATED BLOOD LOSS: 10 mL. IV FLUIDS: 500 mL. URINE OUTPUT: 100 mL. DESCRIPTION OF PROCEDURE: The patient was informed of the risks and benefits of alternative procedure, risks including infection, bleeding, damage to surrounding organ and tissue, complication from anesthesia, and possible . Risks have been explained, but not limited to. After informed consent was obtained, she was then taken to the operating room, prepped and draped in usual sterile fashion, placed in dorsal supine position. A weighted speculum was placed into the vagina. The anterior lip of the cervix was grasped with single-toothed tenaculum. The uterus was only sounded to approximately 10 cm. Upon complete uterine dilation, the scope was then placed. A complete surveillance of the uterine cavity was then performed. In that particular instance, the MyoSure device was then activated. Under direct visualization, the endometrial polyp was then removed and submitted to pathology. Excellent hemostasis was observed. The scope was then removed and a fractional dilatation and curettage was performed. EMC and ECC was submitted to pathology. The scope was reintroduced making sure that there was no perforation, which the uterus is completely intact. Upon completion, all instruments were removed from the vagina. Instruments from my count were correct x2. The patient was then taken to recovery room in stable condition and instructed to follow up in the office in approximately two weeks. Jacqueline Conde MD
== END 2018-05-26 17:06 | disposition home or self-care (01) ==
LOC: C.SDS 10:24
PROVIDERS: ATTEND Obstetrics & Gynecology
DX: N84.0 Polyp of corpus uteri (principal); N92.1 Excessive and frequent menstruation with irregular cycle
CPT/HCPCS: 58558; 88305; J2250; J2704; J3010; J7120

== ENCOUNTER 2018-06-13 07:30 | Outpatient (CLI) | payer SELFPAY | END 2018-06-13 07:31 | disposition home or self-care (01) | LOC: C.LAB 07:30 | DX: E22.1 Hyperprolactinemia (principal) ==

== ENCOUNTER 2018-07-15 08:54 | Emergency (ER) | payer SELFPAY ==
[2018-07-15 09:26] VITALS: RESP 16; O2SAT 100; BMI 27.3
--- NOTE | 2018-07-15 10:50 | C.PDOC ---
History Of Present Illness 42 y/o female presents to the ED with c/o lower abdominal pain and vaginal bleeding for 3 days. She admits to (+) home test. She also reports some dysuria and frequency. No fever or chills. Pt otherwise denies any nausea, vomiting, diarrhea, or other associated complaints. Time Seen by Provider: 07/15/18 09:46 Chief Complaint (Nursing): Female Genitourinary History Per: Patient History/Exam Limitations: no limitations Onset/Duration Of Symptoms: Days (x 3) Current Symptoms Are (Timing): Still Present Location Of Pain/Discomfort: Suprapubic Associated Symptoms: Urinary Symptoms Past Medical History Reviewed: Historical Data, Nursing Documentation, Vital Signs Vital Signs: Last Vital Signs Temp 98.4 F 07/15/18 09:24 Pulse 75 07/15/18 09:24 Resp 16 07/15/18 09:24 BP 105/72 07/15/18 09:24 Pulse Ox 100 07/15/18 09:24 - Medical History PMH: Denies: Chronic Kidney Disease - [facility] Procedures EXTRACTION OF PRODUCTS OF CONCEPTION, RETAINED, VIA OPENING (07/15/16) Family History: States: No Known Family Hx - Social History Hx Tobacco Use: No Hx Alcohol Use: No Hx Substance Use: No - Immunization History Hx Tetanus Toxoid Vaccination: No Hx Influenza Vaccination: No Hx Pneumococcal Vaccination: No Review Of Systems Constitutional: Negative for: Fever, Chills Respiratory: Negative for: Shortness of Breath Gastrointestinal: Positive for: Abdominal Pain. Negative for: Nausea, Vomiting Genitourinary: Positive for: Dysuria, Vaginal Bleeding Musculoskeletal: Negative for: Back Pain Neurological: Negative for: Weakness, Dizziness Physical Exam - Physical Exam Appears: Non-toxic, No Acute Distress Skin: Normal Color, No Rash Head: Atraumatic, Normacephalic Eye(s): bilateral: PERRL, EOMI Oral Mucosa: Moist Neck: Normal ROM Chest: Symmetrical Cardiovascular: Rhythm Regular, No Murmur Respiratory: No Rales, No Rhonchi, No Wheezing, Other (Lungs CTA bilaterally) Gastrointestinal/Abdominal: Soft, Tenderness (suprapubic), No Guarding, No Rebound Back: No CVA Tenderness Extremity: Normal ROM, No Pedal Edema, No Calf Tenderness Pulses: Left Dorsalis Pedis: Normal, Right Dorsalis Pedis: Normal Neurological/Psych: Oriented x3, Normal Speech, Normal Cognition ED Course And Treatment - Laboratory Results Result Diagrams: 07/15/18 11:26 07/15/18 11:26 Urine POC: Positive O2 Sat by Pulse Oximetry: 100 (on RA) Pulse Ox Interpretation: Normal - CT Scan/US Transvaginal US Other Rad Studies (CT/US): Read By Radiologist, Radiology Report Reviewed CT/US Interpretation: Impression: There is evidence of a twin gestation. Fetus A demonstrates gestational sac measuring 0.8 cm, out of range for gestational age calculation. 3 mm yolk sac. No evidence of pole at this time. Fetus B demonstrates gestational sac measuring 0.4 cm, out of range for gestational age calculation. No evidence of yolk sac or pole at this time. Recommend clinical correlation and close interval follow-up. 2 x 2.2 x 2.6 cm left corpus luteum. Small pelvic free fluid. Medical Decision Making Medical Decision Making: Initial Plan: Basic blood work, beta-HCG, and UA ordered. Urine culture sent. Pending Transvaginal US. UA +blood, no sign of infection. Beta-HCG 8846.60 US shows twin gestation. 1445 discussed with patient using interpeter( [id number]) about twin gestation, unclear if early or missed ab, and need to see president sales and marketing in 2-3 days, and if unable , to return to er for repeat bhcg. pelvic rest discussed Disposition Counseled Patient/Family Regarding: Studies Performed, Diagnosis, Need For Followup - Disposition [facility] [Outside] [facility] [Outside] Disposition: HOME/ ROUTINE Disposition Time: 15:02 Condition: GOOD Additional Instructions: Gabriella un seguimiento con el gineclogo en los prximos 2-3 morton; Si no puede hacerlo, regrese a la sharyn de emergencias para repetir los anlisis de fer para melisa si la hormona del embarazo aumenta o disminuye. [place] en la vagina. Sin sexo ni tampones. Regrese a la sharyn de emergencias de inmediato si sangra tanto que empapa jonas servilleta sanitaria por hora. No est lorri si se trata de un aborto perdido (los embarazos no progresarn), o simplemente un embarazo muy temprano. Follow up with healthcare marketer in next 2-3 days; if unable to do so, then return to ER for repeat blood tests to see if hormone going up or down. Nothing in vagina. No sex or tampons. Return to ER right away if you bleed so heavily that you soak one sanitary napkin per hour. It is unclear if this is a missed (pregnancies will not progress), or just very early . Instructions: Threatened Miscarriage (DC) Forms: Gen Discharge Inst Romanian, [employer] (Romanian) Print Language: KOREAN - Clinical Impression Clinical Impression: Threatened miscarriage - PA / INSPECTOR OPTICAL INSTRUMENT / Resident Statement MD/DO has reviewed & agrees with the documentation as recorded. - Scribe Statement The provider has reviewed the documentation as recorded by the Scribkirill Osullivan All medical record entries made by the Scribe were at my direction and personally dictated by me. I have reviewed the chart and agree that the record accurately reflects my personal performance of the history, physical exam, medical decision making, and the department course for this patient. I have also personally directed, reviewed, and agree with the discharge instructions and disposition.
[2018-07-15 10:58] LABS: SQUAMOUS EPITHIAL 10 /hpf (0-5); URINE BILIRUBIN NEGATIVE (NEGATIVE); URINE BLOOD 3+ (NEGATIVE); URINE CLARITY Hazy (Clear); URINE COLOR Yellow (YELLOW); URINE GLUCOSE (UA) NORMAL (Normal); URINE LEUKOCYTE ESTERASE NEG Leu/uL (Negative); URINE PROTEIN NEGATIVE (NEGATIVE); URINE UROBILINOGEN NORMAL mg/dL (0.2-1.0)
[2018-07-15 11:32] LABS: BASO % 0.8 % (0.0-2.0); EOS # 0.1 K/uL (0.0-0.7); HEMOGLOBIN 11.6 g/dL (11.0-16.0); LYMPH # 1.6 K/uL (1.0-4.3); MEAN CELL VOLUME 90.5 fL (81.0-99.0); MEAN CORPUSCULAR HEMOGLOBIN 32.1 pg (27.0-31.0); MEAN CORPUSCULAR HGB CONC 35.4 g/dL (33.0-37.0); MEAN PLATELET VOLUME 8.4 fL (7.2-11.7); MONO # 0.5 K/uL (0.0-0.8); MONO % 8.6 % (0.0-10.0); NEUT # 3.4 K/uL (1.8-7.0); NEUT % 60.6 % (50.0-75.0); NRBC % 0.1 % (0.0-2.0); RBC 3.61 Mil/uL (3.80-5.20); RED CELL DISTRIBUTION WIDTH 14.6 % (11.5-14.5); WHITE BLOOD COUNT 5.7 K/uL (4.8-10.8)
[2018-07-15 11:52] LABS: ALB/GLOB RATIO 1.4 (1.0-2.1); ALBUMIN 4.1 g/dL (3.5-5.0); ALT/SGPT 19 U/L (9-52); AST/SGOT 20 U/L (14-36); BLOOD UREA NITROGEN 7 mg/dL (7-17); CALCIUM 9.4 mg/dl (8.6-10.4); GFR NON-AFRICAN AMERICAN > 60
[2018-07-15 13:23] VITALS: BP 101/66; PULSE 67; TEMP 98
--- NOTE | 2018-07-15 14:00 | US ---
Date of service: 07/15/2018 Indication: preg pain and bleeding Comparison: Transvaginal pelvic ultrasound performed 04/18/18 Technique: Real-time transabdominal pelvic ultrasound was performed. In addition a transvaginal pelvic ultrasound was necessary to better depict pelvic anatomy. Findings: The uterus measures approximately 10.3 x 4.3 x 6.2 cm. Anteverted. Cervix length measures approximately 3.6 cm. This is evidence of a twin gestation. Fetus A: The gestational sac measures 0.8 cm, out of range for gestational age calculation. 3 mm yolk sac. No evidence of pole at this time. Fetus B: The gestational sac measures 0.4 cm, out of range for gestational age calculation. No evidence of yolk sac or pole at this time. The right ovary measures 2.7 x 2.5 x 3.1 cm. The left ovary measures 3.1 x 2.4 x 3.4 cm and contains 2 x 2.2 x 2.6 cm corpus luteum. Blood flow is demonstrated to both ovaries. Small pelvic free fluid. Impression: There is evidence of a twin gestation. Fetus A demonstrates gestational sac measuring 0.8 cm, out of range for gestational age calculation. 3 mm yolk sac. No evidence of pole at this time. Fetus B demonstrates gestational sac measuring 0.4 cm, out of range for gestational age calculation. No evidence of yolk sac or pole at this time. Recommend clinical correlation and close interval follow-up. 2 x 2.2 x 2.6 cm left corpus luteum. Small pelvic free fluid.
== END 2018-07-15 15:24 | disposition home or self-care (01) ==
LOC: C.ER 08:54
DX: O20.0 Threatened abortion (principal)

== ENCOUNTER 2018-07-25 21:58 | Emergency (ER) | payer SELFPAY ==
[2018-07-25 21:59] VITALS: BMI 21.6
[2018-07-25] MEDS ORDERED: Sodium Chloride 0.9% 1,000 ML IV ONE (22:29)
[2018-07-25 22:54] LABS: BASO % 0.5 % (0.0-2.0); EOS # 0.1 K/uL (0.0-0.7); EOS % 0.7 % (0.0-4.0); HEMOGLOBIN 11.9 g/dL (11.0-16.0); LYMPH # 2.2 K/uL (1.0-4.3); LYMPH % 24.9 % (20.0-40.0); MEAN CORPUSCULAR HEMOGLOBIN 30.9 pg (27.0-31.0); MEAN CORPUSCULAR HGB CONC 34.8 g/dL (33.0-37.0); MEAN PLATELET VOLUME 8.1 fL (7.2-11.7); MONO # 0.5 K/uL (0.0-0.8); MONO % 5.7 % (0.0-10.0); NEUT # 5.9 K/uL (1.8-7.0); NEUT % 68.2 % (50.0-75.0); RBC 3.84 Mil/uL (3.80-5.20); RED CELL DISTRIBUTION WIDTH 14.3 % (11.5-14.5); WHITE BLOOD COUNT 8.7 K/uL (4.8-10.8)
[2018-07-25] MEDS ORDERED: Sodium Chloride 0.9% 1,000 ML ONE (22:57)
[2018-07-25 23:06] LABS: SQUAMOUS EPITHIAL 1 /hpf (0-5); URINE BACTERIA OCC (<OCC); URINE BILIRUBIN NEGATIVE (NEGATIVE); URINE BLOOD 3+ (NEGATIVE); URINE CLARITY Hazy (Clear); URINE COLOR Red (YELLOW); URINE GLUCOSE (UA) NORMAL (Normal); URINE LEUKOCYTE ESTERASE NEG Leu/uL (Negative); URINE PROTEIN 1+ mg/dL (NEGATIVE); URINE UROBILINOGEN NORMAL mg/dL (0.2-1.0)
[2018-07-25 23:14] LABS: ALB/GLOB RATIO 1.3 (1.0-2.1); ALBUMIN 4.2 g/dL (3.5-5.0); ALT/SGPT 20 U/L (9-52); AST/SGOT 20 U/L (14-36); BLOOD UREA NITROGEN 11 mg/dL (7-17); CALCIUM 9.5 mg/dl (8.6-10.4); GFR NON-AFRICAN AMERICAN > 60
--- NOTE | 2018-07-26 00:05 | C.PDOC ---
History Of Present Illness 42 year old female, approx 4 weeks presents to the ED c/o vaginal bleeding and pelvic cramps. Patient denies fever, chills, nausea, vomiting, diarrhea, dysuria, hemturia, rashes, abdominal pain. Time Seen by Provider: 07/25/18 22:15 Chief Complaint (Nursing): Female Genitourinary History Per: Patient History/Exam Limitations: no limitations Onset/Duration Of Symptoms: Days Current Symptoms Are (Timing): Still Present Severity: Mild Associated Symptoms: denies: Nausea, Vomiting, Diarrhea, Urinary Symptoms Recent travel outside of the [place]: No Additional History Per: Patient Abnormal Vaginal Bleeding: Yes Last Menstral Period: 06/08/2018 Past Medical History Reviewed: Historical Data, Nursing Documentation, Vital Signs Vital Signs: Last Vital Signs Temp 98.7 F 07/25/18 22:27 Pulse 81 07/25/18 22:27 Resp 18 07/25/18 22:27 BP 99/64 L 07/25/18 22:27 Pulse Ox 100 07/25/18 22:27 Primary Care Provider: Jacqueline Conde - Medical History PMH: No Chronic Diseases Denies: Chronic Kidney Disease Surgical History: No Surg Hx - [facility] Procedures EXTRACTION OF PRODUCTS OF CONCEPTION, RETAINED, VIA OPENING (07/15/16) Family History: States: No Known Family Hx - Social History Hx Tobacco Use: No Hx Alcohol Use: No Hx Substance Use: No - Immunization History Hx Tetanus Toxoid Vaccination: No Hx Influenza Vaccination: No Hx Pneumococcal Vaccination: No Review Of Systems Constitutional: Negative for: Fever, Chills Gastrointestinal: Negative for: Nausea, Vomiting, Abdominal Pain Genitourinary: Positive for: Vaginal Bleeding, Pelvic Pain. Negative for: Dysuria, Hematuria, Vaginal Discharge Musculoskeletal: Negative for: Back Pain Skin: Negative for: Rash Neurological: Negative for: Weakness, Numbness, Headache Physical Exam - Physical Exam Appears: Well, Non-toxic, No Acute Distress Skin: Normal Color, Warm, Dry Eye(s): bilateral: Normal Inspection Oral Mucosa: Moist Neck: Supple Cardiovascular: Rhythm Regular Respiratory: Normal Breath Sounds, No Rales, No Rhonchi, No Wheezing Gastrointestinal/Abdominal: Bowel Sounds, Soft, Tenderness (suprapubic TTP, (-) McBurney's), No Guarding, No Rebound Back: No CVA Tenderness Extremity: Normal ROM, No Tenderness, No Swelling Neurological/Psych: Oriented x3 Gait: Steady ED Course And Treatment - Laboratory Results Result Diagrams: 07/25/18 22:49 07/25/18 22:49 Lab Results: Total Bilirubin < 0.1 mg/dL (0.2-1.3) L 07/25/18 22:49 AST 20 U/L (14-36) 07/25/18 22:49 ALT 20 U/L (9-52) 07/25/18 22:49 Alkaline Phosphatase 63 U/L (38-126) 07/25/18 22:49 Total Protein 7.5 g/dL (6.3-8.3) 07/25/18 22: Albumin 4.2 g/dL (3.5-5.0) 07/25/18 22:49 Globulin 3.2 gm/dL (2.2-3.9) 07/25/18 22:49 Albumin/Globulin Ratio 1.3 (1.0-2.1) 07/25/18 22:49 Urine Color Red (YELLOW) 07/25/18 22:59 Urine Clarity Hazy (Clear) 07/25/18 22:59 Urine pH 9.0 (5.0-8.0) 07/25/18 22:59 Ur Specific Industry 1.009 (1.003-1.030) 07/25/18 22:59 Urine Protein 1+ mg/dL (NEGATIVE) H 07/25/18 22:59 Urine Glucose (UA) Normal mg/dL (Normal) 07/25/18 22:59 Urine Ketones Negative mg/dL (NEGATIVE) 07/25/18 22:59 Urine Blood 3+ (NEGATIVE) H 07/25/18 22:59 Urine Nitrate Negative (NEGATIVE) 07/25/18 22:59 Urine Bilirubin Negative (NEGATIVE) 07/25/18 22:59 Urine Urobilinogen Normal mg/dL (0.2-1.0) 07/25/18 22:59 Ur Leukocyte Esterase Neg Berenice/uL (Negative) 07/25/18 22:59 Urine WBC (Auto) 1 /hpf (0-5) 07/25/18 22:59 Urine RBC (Auto) 1210 /hpf (0-3) H 07/25/18 22:59 Ur Squamous Epith Cells 1 /hpf (0-5) 07/25/18 22:59 Urine Bacteria Occ (<OCC) H 07/25/18 22:59 Beta HCG, Quant 17856.00 mIU/ML 07/25/18 22:49 O2 Sat by Pulse Oximetry: 100 (ON RA) Pulse Ox Interpretation: Normal Progress Note: Blood work, UA, UPreg and transvaginal US ordered. Patient given IV NS bolus. Disposition - Disposition Disposition Time: 01:00 Condition: STABLE Forms: [email or web address] Connect (Ivorian) - Clinical Impression Clinical Impression: Vaginal bleeding during - Scribe Statement The provider has reviewed the documentation as recorded by the Scribe Jorge Aguiar All medical record entries made by the Scribe were at my direction and personally dictated by me. I have reviewed the chart and agree that the record accurately reflects my personal performance of the history, physical exam, medical decision making, and the department course for this patient. I have also personally directed, reviewed, and agree with the discharge instructions and disposition. Physician Patient Turnover Patient Signed Over To: Jo Ann Woody Handoff Comments: pending US
[2018-07-26 02:35] VITALS: BP 100/60; PULSE 90; RESP 14; TEMP 98.5; O2SAT 99
--- NOTE | 2018-07-26 17:45 | US ---
Date of service: 07/26/2018 PROCEDURE: OB Pelvic Ultrasound HISTORY: pelvic pain, bleeding COMPARISON: None available. FINDINGS: UTERUS: Single Live intrauterine gestation. Yolk sac is visualized. CRL measures 0.65 cm equivalent to 6 weeks and 4 days of gestational age. Gestational sac diameter measures 2.1 cm equivalent to 6 weeks and 4 days of gestational age. age (Ultrasound estimated): 6 weeks and 4 days Date of delivery (Ultrasound estimated) : 03/17/2019 Heart rate: 133 bpm. Rosemary-gestational hemorrhage: None. Uterus measures 9.4 x 6.5 x 7.6 cm. Anteverted and enlarged. 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 The central endometrial echo complex in the right cornu is thick heterogeneous and measures 19 mm. CERVIX: Long and closed. Measures 4.1 cm. No cervical abnormality seen. RIGHT OVARY: Measures 1.7 x 2.5 x 1.6 cm. No mass. Normal flow. LEFT OVARY: Measures 3.2 x 2.8 x 3.4 cm. No mass. Normal flow. There is a 2.3 x 1.8 x 2.2 cm corpus luteum cyst. FREE FLUID: None. OTHER FINDINGS: None. IMPRESSION: 1. Single live intrauterine gestation in the left cornua for bicornuate uterus with mean gestational age of 6 weeks and 4 days. The estimated date of delivery by ultrasound is 03/17/2019. The ultrasound dates correspond with the clinical dates. 2. Thick heterogeneous central endometrial echo complex in the right cornu of the uterus. A preliminary report was provided by [facility].
== END 2018-07-26 02:34 | disposition home or self-care (01) ==
LOC: C.ER 21:58
DX: O20.0 Threatened abortion (principal); O20.9 Hemorrhage in early pregnancy, unspecified; Z3A.01 Less than 8 weeks gestation of pregnancy
CPT/HCPCS: 76805; 76817; 80053; 81001; 84702; 85025; 86850; 86900; 96360; 99283; J7030

== ENCOUNTER 2018-07-31 18:03 | Emergency (ER) | payer OTHER ==
[2018-07-31 18:03] VITALS: BMI 21.6
[2018-07-31 18:21] VITALS: PULSE 82; RESP 20; TEMP 99.1
[2018-07-31 18:53] LABS: HCG,QUALITATIVE URINE POSITIVE (NEGATIVE)
[2018-07-31 18:54] LABS: URINE BACTERIA RARE (<OCC); URINE BILIRUBIN NEGATIVE (NEGATIVE); URINE BLOOD NEGATIVE (NEGATIVE); URINE CLARITY Clear (Clear); URINE COLOR Straw (YELLOW); URINE GLUCOSE (UA) NORMAL (Normal); URINE LEUKOCYTE ESTERASE NEG Leu/uL (Negative); URINE PROTEIN NEGATIVE (NEGATIVE); URINE UROBILINOGEN NORMAL mg/dL (0.2-1.0)
--- NOTE | 2018-07-31 19:02 | C.PDOC ---
History Of Present Illness 42 year old female presents to ED with complaint of urinary discomfort for the past day. Patient is 7 weeks by date. Patient had an US on July 15 that showed early twin gestation. Pelvic US on July 26 showed a single at 6 weeks and 4 days. She denies pelvic pain, vaginal bleeding, and vaginal discharge. <Lisandro Coffey - Last Filed: 07/31/18 20:37> <Jacqueline Ndiaye - Last Filed: 07/31/18 18:57> History Per: Patient History/Exam Limitations: no limitations Onset/Duration Of Symptoms: Days (1) Current Symptoms Are (Timing): Still Present Radiation Of Pain To:: None Quality Of Discomfort: "Pain" Associated Symptoms: Urinary Symptoms (dysuria). denies: Fever, Chills, Back Pain Abnormal Vaginal Bleeding: No <Lisandro Coffey - Last Filed: 07/31/18 20:37> Chief Complaint (Nursing): Abdominal Pain Past Medical History Vital Signs: Last Vital Signs Temp 99.1 F 07/31/18 18:18 Pulse 82 07/31/18 18:18 Resp 20 07/31/18 18:18 BP 99/55 L 07/31/18 18:18 Pulse Ox 100 07/31/18 18:18 Primary Care Provider: Jacqueline Conde - Medical History PMH: Denies: Chronic Kidney Disease - [facility] Procedures EXTRACTION OF PRODUCTS OF CONCEPTION, RETAINED, VIA OPENING (07/15/16) Family History: States: Unknown Family Hx - Social History Hx Tobacco Use: No Hx Alcohol Use: No Hx Substance Use: No - Immunization History Hx Tetanus Toxoid Vaccination: No Hx Influenza Vaccination: No Hx Pneumococcal Vaccination: No <Jacqueline Ndiaye - Last Filed: 07/31/18 18:57> Reviewed: Historical Data, Nursing Documentation, Vital Signs Vital Signs: Last Vital Signs Temp 99.1 F 07/31/18 18:18 Pulse 82 07/31/18 18:18 Resp 20 07/31/18 18:18 BP 99/55 L 07/31/18 18:18 Pulse Ox 100 07/31/18 19:29 - Medical History PMH: No Chronic Diseases Surgical History: No Surg Hx - [facility] Procedures EXTRACTION OF PRODUCTS OF CONCEPTION, RETAINED, VIA OPENING (07/15/16) Family History: States: Unknown Family Hx <Lisandro Coffey - Last Filed: 07/31/18 20:37> Review Of Systems Constitutional: Negative for: Fever, Chills, Weakness Gastrointestinal: Negative for: Abdominal Pain Genitourinary: Positive for: Dysuria. Negative for: Vaginal Discharge, Vaginal Bleeding, Pelvic Pain Musculoskeletal: Negative for: Back Pain <Lisandro Coffey - Last Filed: 07/31/18 20:37> Physical Exam - Physical Exam Appears: Well, Non-toxic, No Acute Distress Skin: Normal Color, Warm, Dry Head: Atraumatic, Normacephalic Neck: Normal ROM, Supple Chest: Symmetrical, No Deformity Cardiovascular: Rhythm Regular, No Murmur Respiratory: No Accessory Muscle Use, No Rales, No Rhonchi, No Wheezing Gastrointestinal/Abdominal: Soft, No Tenderness Pelvic: Other (deferred) Neurological/Psych: Oriented x3, Normal Speech, Normal Cognition <Lisandro Coffey - Last Filed: 07/31/18 20:37> ED Course And Treatment - Laboratory Results Lab Results: Urine HCG, Qual Positive (NEGATIVE) 07/31/18 18:40 Urine HCG, Qual Positive (NEGATIVE) 07/31/18 18:40 O2 Sat by Pulse Oximetry: 100 <Jacqueline Ndiaye - Last Filed: 07/31/18 18:57> - Laboratory Results Lab Results: Urine Color Straw (YELLOW) 07/31/18 18:40 Urine Clarity Clear (Clear) 07/31/18 18:40 Urine pH 7.0 (5.0-8.0) 07/31/18 18:40 Ur Specific [place] 1.004 (1.003-1.030) 07/31/18 18:40 Urine Protein Negative mg/dL (NEGATIVE) 07/31/18 18:40 Urine Glucose (UA) Normal mg/dL (Normal) 07/31/18 18:40 Urine Ketones Negative mg/dL (NEGATIVE) 07/31/18 18:40 Urine Blood Negative (NEGATIVE) 07/31/18 18:40 Urine Nitrate Negative (NEGATIVE) 07/31/18 18:40 Urine Bilirubin Negative (NEGATIVE) 07/31/18 18:40 Urine Urobilinogen Normal mg/dL (0.2-1.0) 07/31/18 18:40 Ur Leukocyte Esterase Neg Berenice/uL (Negative) 07/31/18 18:40 Urine WBC (Auto) < 1 /hpf (0-5) 07/31/18 18:40 Urine RBC (Auto) < 1 /hpf (0-3) 07/31/18 18:40 Urine Bacteria Rare (<OCC) 07/31/18 18:40 Urine HCG, Qual Positive (NEGATIVE) 07/31/18 18:40 Urine HCG, Qual Positive (NEGATIVE) 07/31/18 18:40 Lab Interpretation: Normal (ua normal) Urine POC: Positive Pulse Ox Interpretation: Normal Progress Note: B-HCG and UA ordered for patient. <Lisandro Coffey - Last Filed: 07/31/18 20:37> Medical Decision Making Medical Decision Making: minor discomfort for 1 day with urination normal UA many prior OBGYN visits in our ED, most recently 07/26/18 (5 days ago) Defer pelvic exam in early preg for increased risks of manipulations in early preg no UTI two prior pelvic US's 07/15 and 07/26 show progression of 1 (formerly twins noted 07/15) opt f/u with S[employer]IOR [employer] ARCHITECT encouraged. <Lisandro Coffey - Last Filed: 07/31/18 20:37> Disposition <Jacqueline Ndiaye - Last Filed: 07/31/18 18:57> Doctor Will See Patient In The: Office Counseled Patient/Family Regarding: Studies Performed, Diagnosis - Disposition Disposition Time: 19:43 <Lisandro Coffey - Last Filed: 07/31/18 20:37> - Disposition Referrals: Jacqueline Conde MD [Staff Provider] - Disposition: HOME/ ROUTINE Condition: GOOD Additional Instructions: examen de orina NORMAL Sigue con jj OB Llama hacer tan Instructions: Dysuria, Adult (DC) Forms: [facility] (Greenlandic) Print Language: TELUGU - Clinical Impression Clinical Impression: Dysuria in - Scribe Statement The provider has reviewed the documentation as recorded by the Scribe (Melly Lo) All medical record entries made by the Scribe were at my direction and personally dictated by me. I have reviewed the chart and agree that the record accurately reflects my personal performance of the history, physical exam, medical decision making, and the department course for this patient. I have also personally directed, reviewed, and agree with the discharge instructions and disposition. <Lisandro Coffey E - Last Filed: 07/31/18 20:37>
[2018-07-31 20:11] VITALS: BP 103/78; O2SAT 97
== END 2018-07-31 19:45 | disposition home or self-care (01) ==
LOC: C.ER 18:03
DX: O26.891 Other specified pregnancy related conditions, first trimester (principal); R30.0 Dysuria; Z3A.01 Less than 8 weeks gestation of pregnancy

== ENCOUNTER 2018-08-06 10:57 | Outpatient (CLI) | payer OTHER | END 2018-08-06 10:58 | disposition home or self-care (01) | LOC: C.LAB 10:57 | DX: Z32.01 Encounter for pregnancy test, result positive (principal); Z34.00 Encounter for supervision of normal first pregnancy, unspecified trimester; Z01.84 Encounter for antibody response examination; Z31.430 Encounter of female for testing for genetic disease carrier status for procreative management; N39.0 Urinary tract infection, site not specified ==